=== PATIENT | male | born 1960 | race Caucasian/White ===

== ENCOUNTER 2018-02-14 21:21 | Inpatient (IN) | payer SELFPAY ==
[2018-02-14 22:55] LABS: Absolute Lymphocytes (CBC) 0.8 K/uL (0.7-4.9); Absolute Monocytes 0.5 K/uL (0.1-1.3); Absolute Neutrophil 4.3 K/uL (1.8-8.0); Basophils % 1.1 % (0-1.3); Eosinophils % 4.9 % (0-4.4); Hematocrit 36.1 % (39.6-49.0); Lymphocytes % 13.9 % (15.3-44.8); MPV 8.1 fL (7.6-11.3); Monocytes % 8.5 % (3.3-12.3); RBC Red Blood Cell Count 3.85 M/uL (4.33-5.43)
[2018-02-14 22:58] LABS: Protime INR 1.22
[2018-02-14 23:08] LABS: ALT/SGPT 40 U/L (12-78); AST/SGOT 59 U/L (15-37); Albumin 2.2 g/dL (3.4-5.0); Alkaline Phosphatase 200 U/L (45-117); BUN Blood Urea Nitrogen 18 mg/dL (7-18); Bicarbonate 24 mmol/L (21-32); Bilirubin Direct 0.5 mg/dL (0-0.2); Bilirubin Total 1.1 mg/dL (0.2-1.0); Glucose Level 108 mg/dL (74-106); Lipase 241 U/L (73-393); NT PRO-BNP 155 pg/mL (<125); Protein, Total 6.7 g/dL (6.4-8.2); Sodium Level 141 mmol/L (136-145); Troponin (Emerg Dept Use Only) < 0.02 ng/mL (0.0-0.045)
--- NOTE | 2018-02-15 02:24 | ER ---
Nurse's Notes [facility] Name: Mumtaz Mace Age: 57 yrs Sex: Male : 1960 Arrival Date: 02/14/2018 Time: 21:25 Bed 14 Private MD: Diagnosis: Unspecified cirrhosis of liver;Anasarca Presentation: 02/14 21:34 Presenting complaint: Patient states: "I've been having a lot of swelling all over my lp1 body the last couple days, getting painful"; Hx of Hep C, has not been taking medications as prescribed; States congestion. Transition of care: patient was not received from another setting of care. Onset of symptoms was February 14, 2018. Risk Assessment: Do you want to hurt yourself or someone else? Patient reports no desire to harm self or others. Initial Sepsis Screen: Does the patient meet any 2 criteria? No. Patient's initial sepsis screen is negative. Does the patient have a suspected source of infection? No. Patient's initial sepsis screen is negative. Care prior to arrival: None. 21:34 Method Of Arrival: Wheelchair lp1 21:34 Acuity: BUD 3 lp1 Historical: - Allergies: 21:37 PENICILLINS; lp1 - Home Meds: 21:37 Unable to obtain [Active]; lp1 - PMHx: 21:37 Hepatitis; lp1 - PSHx: 21:37 Left ankle surgery; lp1 - Immunization history:: Adult Immunizations up to date. - Social history:: Smoking status: Patient uses tobacco products, smokes one-half pack cigarettes per day. - Ebola Screening: : No symptoms or risks identified at this time. - Family history:: not pertinent. - Hospitalizations: : No recent hospitalization is reported. Screenin:53 Abuse screen: Denies threats or abuse. Denies injuries from another. Nutritional cc3 screening: No deficits noted. Tuberculosis screening: No symptoms or risk factors identified. Fall Risk Ambulatory Aid- None/Bed Rest/Nurse Assist (0 pts). Gait- Normal/Bed Rest/Wheelchair (0 pts) Mental Status- Oriented to own ability (0 pts). Assessment: 21:53 General: Appears in no apparent distress. uncomfortable, Behavior is calm, cooperative, cc3 appropriate for age. Pain: Complains of pain in generalized body pain. Neuro: Level of Consciousness is awake, alert, obeys commands, Oriented to person, place, time, situation, Appropriate for age. Cardiovascular: Patient's skin is warm and dry. Respiratory: Airway is patent Respiratory effort is even, unlabored, Respiratory pattern is regular, symmetrical. GI: Abdomen is round distended, noted to have ascites. : No signs and/or symptoms were reported regarding the genitourinary system. EENT: No signs and/or symptoms were reported regarding the EENT system. Derm: Skin is intact. Musculoskeletal: Circulation, motion, and sensation intact. Range of motion: intact in all extremities. 22:20 Reassessment: Patient appears in no apparent distress at this time. Patient and/or cc3 family updated on plan of care and expected duration. Pain level reassessed. Patient is alert, oriented x 3, equal unlabored respirations, skin warm/dry/pink. 23:20 Reassessment: Patient appears in no apparent distress at this time. Patient and/or cc3 family updated on plan of care and expected duration. Pain level reassessed. Patient is alert, oriented x 3, equal unlabored respirations, skin warm/dry/pink. 02/15 00:10 Reassessment: Patient appears in no apparent distress at this time. Patient and/or cc3 family updated on plan of care and expected duration. Pain level reassessed. Patient is alert, oriented x 3, equal unlabored respirations, skin warm/dry/pink. 01:20 Reassessment: Patient appears in no apparent distress at this time. Patient and/or cc3 family updated on plan of care and expected duration. Pain level reassessed. Patient is alert, oriented x 3, equal unlabored respirations, skin warm/dry/pink. 02:18 Reassessment: Patient appears in no apparent distress at this time. Patient and/or cc3 family updated on plan of care and expected duration. Pain level reassessed. Patient is alert, oriented x 3, equal unlabored respirations, skin warm/dry/pink. 03:30 Reassessment: Patient appears in no apparent distress at this time. Patient and/or cc3 family updated on plan of care and expected duration. Pain level reassessed. Patient is alert, oriented x 3, equal unlabored respirations, skin warm/dry/pink. Patient for admission, room available in 406, report handed over to ADAM Cohn for continuity of care. 03:45 Reassessment: Patient left ER for admission vitally stable by stretcher escorted by ED cc3 [facility]. Vital Signs: 02/14 21:37 BP 152 / 71; Pulse 103; Resp 18; Temp 98.5(O); Pulse Ox 100% on R/A; Weight 65.77 kg; lp1 Height 5 ft. 0 in. (152.40 cm); Pain 9/10; 23:07 BP 158 / 73; Pulse 96; Resp 17 S; Pulse Ox 98% on R/A; cc3 02/15 00:30 BP 154 / 70; Pulse 97; Resp 15 S; Pulse Ox 98% on R/A; cc3 01:15 BP 146 / 70; Pulse 96; Resp 21 S; Pulse Ox 97% on R/A; cc3 03:25 BP 141 / 70; Pulse 92; Resp 20 S; Pulse Ox 97% on R/A; cc3 02/14 21:37 Body Mass Index 28.32 (65.77 kg, 152.40 cm) lp1 ED Course: 02/14 21:25 Patient arrived in ED. am2 21:36 Triage completed. lp1 21:38 Arm band placed on right wrist. lp1 21:39 Leonidas Avila MD is Attending Physician. rn 21:53 Mckayla Gutierrez is Primary Nurse. cc3 21:53 Patient has correct armband on for positive identification. Bed in low position. Call cc3 light in reach. Side rails up X 1. telemetry monitor on. Pulse ox on. NIBP on. 22:18 XRAY CXR (1 view) In Process Unspecified. EDMS 22:40 Inserted saline lock: 20 gauge in right antecubital area, using aseptic technique. oe Blood collected. 22:57 EKG done, by ED staff, reviewed by Leonidas Avila MD. ag4 23:33 CT completed. Patient tolerated procedure well. Patient moved to CT via stretcher. sj Patient moved back from CT. 23:47 CT Abd/Pelvis - W/Contrast In Process Unspecified. EDMS 02/15 02:22 Bhavik Danielson MD is Hospitalizing Provider. rn 03:30 No provider procedures requiring assistance completed. Patient admitted, IV remains in cc3 place. Administered Medications: 02:25 Drug: Lasix 40 mg Route: IVP; Site: right antecubital; cc3 03:12 Follow up: Response: No adverse reaction cc3 Output: 02:40 Urine: 180ml (Voided); Total: 180ml. cc3 03:07 Urine: 275ml (Voided); Total: 455ml. cc3 Outcome: 02:22 Decision to Hospitalize by Provider. rn 03:30 Admitted to Tele accompanied by tech, via stretcher, room 406, with chart, Report cc3 called to ADAM Cohn 03:30 Condition: stable 03:30 Instructed on the need for admit, Demonstrated understanding of instructions. 03:48 Patient left the ED. cc3 Signatures: Dispatcher [employer] EDMS Rylee Mock Roman, MD MD rn Pena, Laura, RN RN lp1 Baldomero Crews Amanda am2 Mckayla Gutierrez cc3 Julio Walter ag4 Corrections: (The following items were deleted from the chart) 01:14 00:30 Pulse 97bpm; Resp 15bpm; Spontaneous; Pulse Ox 98% RA; cc3 cc3 03:08 02:40 Urine 180, Output Total 180. cc3 cc3
--- NOTE | 2018-02-15 02:24 | EDPHYS ---
Physician Documentation [facility] Name: Mumtaz Mace Age: 57 yrs Sex: Male : 1960 Arrival Date: 02/14/2018 Time: 21:25 Bed 14 Private MD: ED Physician Leonidas Avila HPI: 02/14 22:53 This 57 yrs old Male presents to ER via Wheelchair with complaints of rn swelling/pain all over. 22:53 Reports 2 days of swelling "all over", has hx of hepatitis C, but no known cirrhosis, rn no drinking for 10 years. No fever. States takes unknown "fluid pill" but not working.. Onset: The symptoms/episode began/occurred 2 day(s) ago. Severity of symptoms: At their worst the symptoms were moderate in the emergency department the symptoms are unchanged. The patient has not experienced similar symptoms in the past. The patient has not recently seen a physician. Historical: - Allergies: 21:37 PENICILLINS; lp1 - Home Meds: 21:37 Unable to obtain [Active]; lp1 - PMHx: 21:37 Hepatitis; lp1 - PSHx: 21:37 Left ankle surgery; lp1 - Immunization history:: Adult Immunizations up to date. - Social history:: Smoking status: Patient uses tobacco products, smokes one-half pack cigarettes per day. - Ebola Screening: : No symptoms or risks identified at this time. - Family history:: not pertinent. - Hospitalizations: : No recent hospitalization is reported. ROS: 22:53 Constitutional: Negative for fever, chills, and weight loss, Cardiovascular: Negative rn for chest pain, palpitations, + diffuse edema Respiratory: + sob, no cough Abdomen/GI: Negative for abdominal pain, nausea, vomiting, diarrhea, and constipation, : Negative for injury, bleeding, discharge MS/Extremity: Negative for injury and deformity, Skin: Negative for injury, rash, and discoloration, Neuro: Negative for headache, weakness, numbness, tingling, and seizure. Exam: 22:53 Constitutional: This is a well developed male, extremely edematous and trouble just rn getting out of wheelchair Head/Face: Normocephalic, atraumatic. ENT: MMM, no stridor Cardiovascular: tachycardic, regular, no murmur Respiratory: Clear bilateral breath sounds, diminished at bases Abdomen/GI: + distended abdomen with + fluid wave, no peritoneal signs, + fluid-filled umbilical hernia MS/ Extremity: Pulses equal, no cyanosis. Neurovascular intact. 3+ pitting edema Neuro: Awake and alert, GCS 15, oriented to person, place, time, and situation. Cranial nerves II-XII grossly intact. Motor strength 5/5 in all extremities. Sensory grossly intact. Vital Signs: 21:37 BP 152 / 71; Pulse 103; Resp 18; Temp 98.5(O); Pulse Ox 100% on R/A; Weight 65.77 kg; lp1 Height 5 ft. 0 in. (152.40 cm); Pain 9/10; 23:07 BP 158 / 73; Pulse 96; Resp 17 S; Pulse Ox 98% on R/A; cc3 02/15 00:30 BP 154 / 70; Pulse 97; Resp 15 S; Pulse Ox 98% on R/A; cc3 01:15 BP 146 / 70; Pulse 96; Resp 21 S; Pulse Ox 97% on R/A; cc3 03:25 BP 141 / 70; Pulse 92; Resp 20 S; Pulse Ox 97% on R/A; cc3 02/14 21:37 Body Mass Index 28.32 (65.77 kg, 152.40 cm) lp1 MDM: 02/14 21:39 Patient medically screened. rn 02/15 02:20 Differential Diagnosis anasarca, cirrhosis. Data reviewed: vital signs, nurses notes, radiology rn test result(s), radiologic studies, CT scan, plain films, and as a result, I will admit patient. Counseling: I had a detailed discussion with the patient and/or guardian regarding: the historical points, exam findings, and any diagnostic results supporting the discharge/admit diagnosis, lab results, radiology results, the need for further work-up and treatment in the hospital. Admission orders: after a detailed discussion of the patient's condition and case, the admit orders are written by me. ED course: Pt with anasarca, ascites, will admit for further w/u and diuresis. . 02/14 21:57 Order name: BMP; Complete Time: 23:12 rn 02/14 21:57 Order name: CBC with Diff; Complete Time: 23:12 rn 02/14 21:57 Order name: Hepatic Function; Complete Time: 23:12 02/14 21:57 Order name: Lipase; Complete Time: 23:12 02/14 21:57 Order name: NT PRO-BNP; Complete Time: 23:12 02/14 21:57 Order name: PT-INR; Complete Time: 23:12 02/14 21:57 Order name: Ptt, Activated; Complete Time: 23:12 02/14 21:57 Order name: Troponin (emerg Dept Use Only); Complete Time: 23:12 02/15 02:43 Order name: Urine Dipstick--Ancillary (enter results) 02/15 02:55 Order name: CBC with Automated Diff [facility] 02/15 02:55 Order name: CBC with Automated Diff [facility] 02/15 02:55 Order name: Comprehensive Metabolic Panel [facility] 02/15 02:55 Order name: Comprehensive Metabolic Panel [facility] 02/15 02:56 Order name: Hepatitis Panel,Acute [facility] 02/14 21:57 Order name: XRAY CXR (1 view) 02/14 21:57 Order name: EKG; Complete Time: 21:58 02/14 21:57 Order name: Cardiac monitoring; Complete Time: 22:13 02/14 21:57 Order name: EKG - Nurse/Tech; Complete Time: 22:59 02/14 21:57 Order name: IV Saline Lock; Complete Time: 22:59 02/14 21:57 Order name: Labs collected and sent; Complete Time: 22:59 02/14 21:57 Order name: O2 Per Protocol; Complete Time: 22:13 02/14 21:57 Order name: O2 Sat Monitoring; Complete Time: 22:13 02/14 23:12 Order name: CT Abd/Pelvis - W/Contrast 02/15 02:55 Order name: CONS Pharmacy Consult [facility] 02/15 02:55 Order name: Heart Healthy [facility] 02/15 02:56 Order name: Hepatitis Panel,Acute [facility]PR Administered Medications: 02:25 Drug: Lasix 40 mg Route: IVP; Site: right antecubital; cc3 03:12 Follow up: Response: No adverse reaction cc3 Disposition: 02/15/18 02:22 Hospitalization ordered by Bhavik Danielson for Inpatient Admission. Preliminary diagnosis are Unspecified cirrhosis of liver, Anasarca. - Bed requested for Telemetry/MedSurg (Inpatient). - Status is Inpatient Admission. cc3 - Condition is Stable. - Problem is new. - Symptoms have improved. UTI on Admission? No Signatures: Dispatcher [employer] EDEva Marks, RN RN kl Leonidas Avila MD MD rn Pena, Laura, RN RN lp1 Mckayla Gutierrez cc3 Corrections: (The following items were deleted from the chart) 03:17 02:22 Hospitalization Ordered by Bhavik Danielson MD for Inpatient Admission. Preliminary kl diagnosis is Unspecified cirrhosis of liver; Anasarca. Bed requested for Telemetry/MedSurg (Inpatient). Status is Inpatient Admission. Condition is Stable. Problem is new. Symptoms have improved. UTI on Admission? No. rn 03:48 03:17 02/15/2018 02:22 Hospitalization Ordered by Bhavik Danielson MD for Inpatient cc3 Admission. Preliminary diagnosis is Unspecified cirrhosis of liver; Anasarca. Bed requested for Telemetry/MedSurg (Inpatient). Status is Inpatient Admission. Condition is Stable. Problem is new. Symptoms have improved. UTI on Admission? No. kl
[2018-02-15] MEDS ORDERED: FUROSEMIDE 40 MG/4 ML VIAL ONE (02:31)
[2018-02-15] MEDS ORDERED: ALBUMIN HUMAN 25% 100 ML IV ONE (02:52)
[2018-02-15] MEDS ORDERED: ONDANSETRON 4 MG/2 ML VIAL IV PRN (02:52)
[2018-02-15] MEDS ORDERED: FUROSEMIDE 20 MG/ 2ML VIAL IV ONE ×2 (02:55→12:30)
[2018-02-15 03:19] LABS: Urine Blood 2+ (NEG); Urine Glucose NEGATIVE (NEG); Urine Protein 3+ (NEG); Urine pH 5.5 (5.0-7.0)
[2018-02-15 04:01] VITALS: O2SAT 97
[2018-02-15 05:03] VITALS: BMI 33.8
[2018-02-15] MEDS: MORPHINE 2 MG/ML SYR IV PRN ×3 (05:43→19:55)
--- NOTE | 2018-02-15 06:00 | EKG ---
Test Date: 2018-02-14 Test Time: 22:51:59 Set Up And Lay Out Inspector: AG3 MEASUREMENT RESULTS: Intervals: Rate: 99 [place]: 142 QRSD: 76 QT: 378 QTc: 485 [place]: P: 27 [place]: 142 QRS: 12 T: 25 INTERPRETIVE STATEMENTS: Normal sinus rhythm Nonspecific T wave abnormality Prolonged QT Abnormal ECG No previous ECG available for comparison Electronically Signed On 02-15-18 05:59:41 [employer] by Yony Henning
[2018-02-15 06:23] LABS: Absolute Lymphocytes (CBC) 0.8 K/uL (0.7-4.9); Absolute Monocytes 0.6 K/uL (0.1-1.3); Absolute Neutrophil 3.2 K/uL (1.8-8.0); Eosinophils % 5.1 % (0-4.4); Lymphocytes % 16.6 % (15.3-44.8); RBC Red Blood Cell Count 3.13 M/uL (4.33-5.43)
[2018-02-15 06:33] LABS: Albumin 2.2 g/dL (3.4-5.0); Bilirubin Total 1.3 mg/dL (0.2-1.0); Potassium 3.7 mmol/L (3.5-5.1)
[2018-02-15] MEDS ORDERED: ALBUMIN HUMAN 25% 12.5 GM, FUROSEMIDE 100 MG in NA CHLORIDE 0.9% 40 ML IV SCH (07:00)
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
--- NOTE | 2018-02-15 08:28 | RAD REPORT ---
EXAM DESCRIPTION: RAD - Chest Single View - 02/14/2018 10:18 pm CLINICAL HISTORY: DYSPNEA Chest pain. COMPARISON: No comparisons FINDINGS: Portable technique limits examination quality. The lungs are grossly clear. The heart is normal in size. No displaced fractures.Prominent left shoul jeni degenerative changes. IMPRESSION: No acute intrathoracic process suspected.
--- NOTE | 2018-02-15 08:42 | RAD REPORT ---
EXAM DESCRIPTION: CTAbdomen Pelvis W Contrast - 02/15/2018 4:24 am CLINICAL HISTORY: Abdominal pain. IV contrast only;Abdominal distention COMPARISON: No comparisons TECHNIQUE: Biphasic CT imaging of the abdomen and pelvis was performed with 100 ml non-ionic IV cont rast. All CT scans are performed using dose optimization technique as appropriate and may include automated exposure control or mA/KV adjustment according to patient size. FINDINGS: Emphysematous lung bases are seen. Markedly cirrhotic liver is seen with shrunken and nodular. Yxgo-po-wqordpdw splenomegaly. Portal neha ous system is enlarged compatible with portal hypertension. The pancreas, adrenal glands and kidneys are within normal limits. Large amount of ascites is present. Umbilical hernia is present containing ascitic fluid. Bilateral f luid filled inguinal hernias are present, largest on the left, with fluid extending into the scrotal sac. No bowel obstruction. No free air. Nonspecific wall thickening of the cecum noted. The appendix is not identified as a discrete structure, however, no secondary findings of appendicitis are identif ied. No evidence of significant lymphadenopathy. No suspicious bony findings. IMPRESSION: Advanced liver cirrhosis, portal hypertension and splenomegaly. Large volume ascites.
[2018-02-15] MEDS: PROPRANOLOL HCL 10 MG TAB PO SCH ×3 (09:00→21:44)
[2018-02-15 09:23] LABS: Blood Morphology Comment NOT SEEN (NOT SEEN); Platelet Estimate DECR; Urine White Blood Cell Casts OK
--- NOTE | 2018-02-15 11:10 | RAD REPORT ---
EXAM DESCRIPTION: US - Paracentesis Proc Guidance - 02/15/2018 10:44 am CLINICAL HISTORY: US guided paracentesis Ascites COMPARISON: No comparisons FINDINGS: Informed consent was obtained and time-out was performed. Patient's abdomen was prepped and draped in the usual sterile fashion. 1% lidocaine was used for loca l anesthetic purposes. A small skin incision was made. A paracentesis catheter was guided into the peroneal cavity under son ographic guidance. A small amount of fluid was sent for requested lab studies. A large volume paracentesis was performed . The patient tolerated the procedure well. Patient was administered IV albumin per protocol following the procedure. IMPRESSION: Successful ultrasound-guided paracentesis.
[2018-02-15] MEDS: SPIRONOLACTONE 25 MG TABLET PO SCH ×2 (12:25→21:44)
[2018-02-15] MEDS ORDERED: ALBUMIN HUMAN 25% 50 ML IV ONE (12:29)
[2018-02-15 12:45] LABS: Body Fluid WBC 139 /mm^3
[2018-02-15 13:20] LABS: Appearance CLEAR (CLEAR); Body Fluid Source PERITONEAL; Color of fluid Yellow (COLORLESS)
[2018-02-16] MEDS: SPIRONOLACTONE 25 MG TABLET PO SCH (08:47)
[2018-02-16] MEDS: PROPRANOLOL HCL 10 MG TAB PO SCH (08:48)
[2018-02-16] MEDS: MORPHINE 2 MG/ML SYR IV PRN (08:49)
--- NOTE | 2018-02-16 11:32 | RAD REPORT ---
EXAM DESCRIPTION: RAD - Chest Single View - 02/16/2018 11:21 am CLINICAL HISTORY: SOB Chest pain. COMPARISON: Chest Single View dated 02/14/2018 FINDINGS: Portable technique limits examination quality. The lungs are grossly clear. The heart is normal in size. No displaced fractures. IMPRESSION: No acute intrathoracic process suspected.
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
[2018-02-16] MEDS ORDERED: PANTOPRAZOLE 40MG TABLET PO SCH (16:30)
[2018-02-16 18:01] VITALS: BP 143/58; TEMP 98.9
[2018-02-17] MEDS ORDERED: FUROSEMIDE 20 MG TABLET PO SCH (09:00)
[2018-02-17] MEDS ORDERED: PROPRANOLOL HCL 80 MG SA CAP PO SCH (09:00)
[2018-02-17 21:52] LABS: HBsAG Nonreactive (Nonreactive); Hepatitis A IgM Antibody Nonreactive
[2018-02-18 16:36] LABS: Hepatitis C Virus RNA (PCR)log 5.52 log IU/mL
[2018-02-19 13:50] LABS: Hep C Virus RNA (PCR)log 5.32 log IU/mL
== END 2018-02-16 17:06 | disposition home or self-care (01) | DRG 948 ==
LOC: ER 21:21 → ERHOLD 02-15 02:57 → 4TH 02-15 03:33
PROVIDERS: ADMIT Hospitalist; ATTEND Family Medicine
PROC: 0W9G3ZZ Drainage of Peritoneal Cavity, Percutaneous Approach (ICD-10-PCS; principal; 2018-02-15)
DX: R18.8 Other ascites (principal); K74.69 Other cirrhosis of liver; B18.2 Chronic viral hepatitis C; R60.1 Generalized edema; Z88.0 Allergy status to penicillin; Z87.891 Personal history of nicotine dependence; N28.9 Disorder of kidney and ureter, unspecified
CPT/HCPCS: 36415; 49083; 71045; 74177; 80048; 80053; 80074; 80076; 81003; 82105; 83690; 83880; 84484; 85025; 85610; 85730; 87070; 87522; 89050; 93005; 96374; 97163; 99285; J1940; J2270; P9047; Q9967

== ENCOUNTER 2018-03-15 23:10 | Inpatient (IN) | payer SELFPAY ==
--- OUTSIDE RECORDS SUMMARY | 2018-03-15 23:13 | XMS REPORT | Continuity of Care Document ---
:1960 Author Organization Interface Problems Problem Status Onset Classification Date Comments Source Date Reported SHORTNESS OF Active 02/12/[address] [facility] BREATH 18 [place] ABNORMAL LABS Active 06/29/[address] [facility] 18 [place] ACUTE COLITIS, Active 06/29/[address] [facility] ACUTE 18 [place] PANCREATITIS, HYPOK Noninfective 07/04/2017 [place] gastroenteritis and colitis, unspecified NONINFECTIVE Active [facility] GASTROENTERITIS [place] AND COLITIS ACUTE PANCREATITIS Active [facility] WITHOUT NECROSIS [place] OR I HYPOKALEMIA Active [facility] Medications Medication Details Route Status Patient Ordering Order Source Instructions Provider Date Loperamide 2 mg=1 tab, Active [facility] Hydrochloride 2 PO, Q6H, PRN 2018 [place] MG Oral Tablet Loose Stools, [Imodium] X 5 day, # 12 tab, 0 Refill(s), Pharmacy: [facility] Metronidazole 500 mg=1 tab, Active 07/01/ MH 500 MG Oral PO, Q8H, X 7 2018 [place] Tablet [Flagyl] day, # 21 tab, 0 Refill(s), Pharmacy: [facility] Ciprofloxacin 500 mg=1 tab, Active 07/01/ MH 500 MG Oral PO, Q12H, X 7 2018 [place] Tablet [Cipro] day, # 14 tab, 0 Refill(s), Pharmacy: [facility] pantoprazole 40 40 mg=1 tab, Active MH mg oral enteric PO, 2018 [place] coated tablet BID-Before Meals, # 60 tab, 0 Refill(s), Pharmacy: [facility] Potassium 20 mEq, 1 Inactive 07/01/ Chloride tab, Route: 2018 [place] PO, Drug form: ERTAB, ONCE, Dosing Weight 55.17, kg, Start date: 07/01/17 11:22:00 CDT, Stop date: 07/01/17 11:22:00 CDTNotes: (Same as: K-Dur 20) "Do Not Crush" For patients unable to swallow tablet, dissolve in one half glass of water. Allow about 2 minutes for the tablets to disintegrate. Stir before giving to prepare slurry and administer. Please exclude Patient&#8217 ;s with feeding tube less than 14 [place] (Dobhoff, J-tube etc) and pediatric and patients. With food and full glass of water Magnesium Oxide 400 mg, 1 Inactive tab, Route: 2018 [place] PO, Drug form: TAB, ONCE, Dosing Weight 55.17, kg, Start date: 07/01/17 11:22:00 CDT, Stop date: 07/01/17 11:22:00 CDTNotes: (Same as: Mag-Ox 400) Magnesium oxide [id number] elemental magnesium Dose=____mg magnesium oxide (___mg elemental magnesium) pantoprazole 40 mg, 1 tab, No Longer Route: PO, Active 2017 [place] Drug form: ECTAB, BID-Before Meals, Dosing Weight 55.17, kg, Start date: 06/30/17 16:30:00 CDT, Duration: 30 day, Stop date: 07/30/17 7:30:00 CDTNotes: Tablet should not be chewed or crushed. (Same as: Protonix) Sodium Chloride 1,000 mL, Inactive 0.9% IV 1,000 mL Rate: 25 2017 [place] ml/hr, Infuse over: 40 hr, Route: IV, Dosing Weight 55.17 kg, Total Volume: 1,000, Start date: 06/30/17 9:15:00 CDT, Duration: 30 day, Stop date: 07/30/17 9:14:00 CDT, 1.55, m2 Fleet Enema 133 mL, Inactive Route: NC, 2018 [place] Dosing Weight 55.17, kg, ONCE, Start date: 06/30/17 8:11:00 CDT, Stop date: 06/30/17 8:11:00 CDT Potassium 40 mEq, 30 Inactive Chloride 1.33 mL, Route: 2018 [place] MEQ/ML Oral PO, Drug Solution form: LIQ, ONCE, Dosing Weight 55.17, kg, Start date: 06/30/17 7:54:00 CDT, Stop date: 06/30/17 7:54:00 CDTNotes: (Same as: Potassium Chloride) Harvoni 1 tab, PO, Active Daily, 0 2017 [place] Refill(s) NuLYTELY 4,000 ml, Inactive Route: PO, 2017 [place] Drug Form: PDR/REC, Dosing Weight 55.17, kg, ONCE, Start date: 06/29/17 16:29:00 CDT, Stop date: 06/29/17 16:29:00 CDTNotes: (Same as: Nulytely) Citrate of 300 ml, Inactive Magnesia Route: PO, 2017 [place] Drug Form: LIQ, Dosing Weight 55.17, kg, ONCE, Start date: 06/29/17 16:28:00 CDT, Stop date: 06/29/17 16:28:00 CDTNotes: (Same as: Citrate of Magnesia) Concentration : 1.745 gm / 30 mL Potassium 10 mEq, Inactive Chloride Route: IVPB, 2017 [place] Q1H, Dosing Weight 55.17, kg, Total Dose=20 meq, Start date: 06/29/17 14:00:00 CDT, Duration: 2 doses or times, Stop date: 06/29/17 15:00:00 CDT, Peripheral Line potassium 15 mmol, 5 Inactive phosphate mL, Route: 2017 [place] IVPB, ONCE, Dosing Weight 55.17, kg, Start date: 06/29/17 13:59:00 CDT, Stop date: 06/29/17 13:59:00 CDTNotes: (Same as: K Phosphate.) 1 mMol phoshate has 1.47 mEq potassium Infuse over 4 hours Potassium 40 mEq, 2 Inactive Chloride tab, Route: 2017 [place] PO, Drug form: ERTAB, ONCE, Dosing Weight 55.17, kg, Start date: 06/29/17 13:03:00 CDT, Stop date: 06/29/17 13:03:00 CDTNotes: (Same as: K-Dur 20) Golytely 4,000 ml, Inactive Route: PO, 2017 [place] Drug Form: PDR/REC, Dosing Weight 55.17, kg, ONCE, Start date: 06/29/17 8:33:00 CDT, Stop date: 06/29/17 8:33:00 CDTNotes: (Same as: Nulytely) magnesium 300 ml, Inactive citrate 58.2 Route: PO, 2018 [place] MG/ML Oral Drug Form: Solution LIQ, Dosing Weight 55.17, kg, ONCE, Start date: 06/29/17 8:33:00 CDT, Stop date: 06/29/17 8:33:00 CDTNotes: (Same as: Citrate of Magnesia) Concentration : 1.745 gm / 30 mL Flagyl 500 mg, 100 No Longer mL, Route: Active 2017 [place] IVPB, Drug form: INJ, [id number], Dosing Weight 55.17, kg, Start date: 06/29/17 7:00:00 CDT, Duration: 7 day, Stop date: 07/05/17 23:00:00 CDT, ABX Indication: Intra-abdomin al InfectionNote s: (Same as: Flagyl) Avoid alcohol. Ciprofloxacin 400 mg, 200 No Longer mL, Route: Active 2017 [place] IVPB, Drug form: INJ, [id number], Dosing Weight 55.17, kg, Start date: 06/29/17 7:00:00 CDT, Duration: 7 day, Stop date: 07/05/17 19:00:00 CDT, ABX Indication: Intra-abdomin al InfectionNote s: Do not refrigerate Saline Flush 10 ml, Route: No Longer 0.9% IVP, Drug Active 2017 [place] Form: INJ, Dosing Weight 52.8, kg, PRN, PRN Line Flush, Start date: 06/29/17 4:44:00 CDT, Duration: 30 day, Stop date: 07/29/17 4:43:00 CDTNotes: (Same as: BD Posiflush) Ondansetron 4 mg, 2 mL, No Longer Route: IVP, Active 2017 [place] Drug form: INJ, Q6H, Dosing Weight 52.8, kg, PRN Nausea & Vomiting, Start date: 06/29/17 4:44:00 CDT, Duration: 30 day, Stop date: 07/29/17 4:43:00 CDTNotes: (Same as: Zofran) MEDICATION WASTE Product Size: 4 mg Product Wasted: ___ mg Morphine 4 mg, 1 mL, No Longer Route: IVP, Active 2017 [place] Drug form: SOLN, Q4H, Dosing Weight 52.8, kg, PRN Pain Score 7-10, Start date: 06/29/17 4:44:00 CDT, Duration: 30 day, Stop date: 07/29/17 4:43:00 CDTNotes: (Same as:MORPhine Sulfate) Sodium Chloride 1,000 mL, No Longer 0.9% IV 1,000 mL Rate: 125 Active 2017 [place] ml/hr, Infuse over: 8 hr, Route: IV, Dosing Weight 52.8 kg, Total Volume: 1,000, Start date: 06/29/17 4:44:00 CDT, Duration: 30 day, Stop date: 07/29/17 4:43:00 CDT, 1.51, m2 Acetaminophen 650 mg, 2 No Longer tab, Route: Active 2017 [place] PO, Drug form: TAB, Q4H, Dosing Weight 52.8, kg, PRN Pain 1-3/Temp > 100.4 F, Start date: 06/29/17 4:44:00 CDT, Duration: 30 day, Stop date: 07/29/17 4:43:00 CDTNotes: Do not exceed 4 gm/day. (Same as: Tylenol) Sodium Chloride 1,000 mL, Inactive 0.9% (Bolus) IV 1000 ml/hr, 2017 [place] Infuse Over: 1 hr, Route: IV, 1,000, Drug form: INJ, ONCE, Priority: STAT, Dosing Weight 52.8 kg, Start date: 06/29/17 4:23:00 CDT, Stop date: 06/29/17 4:23:00 CDT Potassium 10 mEq, 100 Inactive Chloride mL, Route: 2018 [place] IVPB, Drug form: INJ, ONCE, Dosing Weight 52.8, kg, Start date: 06/29/17 1:54:00 CDT, Stop date: 06/29/17 1:54:00 CDTNotes: Infuse at a rate of 10 mEq/hr. (Same as: KCL) propranolol 80 80 mg=1 cap, Active 04/12/ [facility] mg oral capsule, PO, Daily, # 2018 [facility] extended release 30 cap, 2 Group Refill(s), Pharmacy: [facility] spironolactone 50 mg=1 tab, Active 04/12/ MH 50 mg oral PO, Daily, # 2017 Medical tablet 30 tab, 2 Group Refill(s), Pharmacy: [facility] spironolactone 25 mg=1 tab, Inactive 04/12/ MH 25 mg oral PO, Daily, # 2018 Medical tablet 30 tab, 3 Group Refill(s) Allergies, Adverse Reactions, Alerts Substance Category Reaction Severity Reaction Status Date Comments Source type Reported penicillins Assertion Drug Active allergy Medical Group Immunizations Immunization Date Given Site Status Last Updated Comments Source Results Order Name Results Value Reference Date Interpretation Comments Source Range CHEM PANEL Bili Direct 1.2 mg/dL 0.0 - 0.3 07/01 [place] CHEM PANEL Lipase Lvl 877 unit/L 73 - 393 07/01 [place] CHEM PANEL Magnesium 1.6 mg/dL 1.8 - 2.4 07/01 Lvl [place] CHEM PANEL eGFR 97 07/01 Result Comment: The eGFR is calculated using the CKD-EPI formula. In most young, healthy individuals the eGFR will be >90 mL/ min/1.73m2. The eGFR declines with age. An eGFR of 60-89 may be normal in [facility] mL/min/1. some populations, particularly the elderly, for whom the CKD-EPI formula has not been extensively validated. Use of the eGFR is not recommended in the following populations: [address] Individuals with unstable creatinine concentrations, including patients and those with serious co-morbid conditions. Patients with extremes in muscle mass or diet. The data above are obtained from the National Kidney Disease Education Program (NKDEP) which additionally recommends that when the eGFR is used in patients with extremes of body mass index for purposes of drug dosing, the eGFR should be multiplied by the estimated BMI. CHEM PANEL Sodium Lvl 145 meq/L 135 - 145 07/01 [place] CHEM PANEL Potassium 3.5 meq/L 3.5 - 5.1 07/01 [facility] Lvl /2017 [place] CHEM PANEL Chloride Lvl 121 meq/L 95 - 109 05/ MH [place] CHEM PANEL BUN 20 mg/dL 7 - 22 / MH [place] CHEM PANEL Creatinine 0.84 mg/dL 0.50 - 05/ MH Lvl 1.40 /2017 [place] CHEM PANEL Calcium Lvl 7.2 mg/dL 8.5 - 10.5 05/ MH [place] CHEM PANEL Total 5.4 g/dL 6.4 - 8.4 / MH [place] CHEM PANEL AGAP 11.5 meq/L 10.0 - 05/ MH 20.0 /2017 [place] CHEM PANEL B/C Ratio 24 6 - 25 / [place] CHEM PANEL CO2 16 meq/L 24 - 32 / [place] CHEM PANEL ALT 63 unit/L 0 - 65 07/01 [place] CHEM PANEL Albumin Lvl 2.2 g/dL 3.5 - 5.0 07/01 [place] CHEM PANEL A/G Ratio 0.7 0.7 - 1.6 07/01 [place] CHEM PANEL AST 57 unit/L 0 - 37 / [place] CHEM PANEL Globulin 3.2 g/dL 2.7 - 4.2 / [place] CHEM PANEL Alk Phos 241 unit/L 39 - 136 / [place] CHEM PANEL Bili Total 2.3 mg/dL 0.2 - 1.3 07/01 [place] CHEM PANEL Glucose Lvl 146 mg/dL 70 - 99 / MH [place] HEMATOLOGY INR 1.87 0.85 - 05/ MH 1.17 [place] HEMATOLOGY PT 21.7 s 12.0 - 05/ MH 14.7 [place] HEMATOLOGY Lymphocytes 1.1 K/CMM 1.0 - 5.5 05/03 MH # /2018 [place] HEMATOLOGY Eosinophils 2.3 K/CMM 0.0 - 0.5 05/03 MH # /2018 [place] HEMATOLOGY Monocytes # 0.5 K/CMM 0.0 - 0.8 05/ [place] HEMATOLOGY Segs-Bands # 4.5 K/CMM 1.5 - 8.1 05/ MH /2018 [place] HEMATOLOGY Basophils # 0.1 K/CMM 0.0 - 0.2 07/01 [place] HEMATOLOGY Eosinophils 26.8 % 0.0 - 4.0 07/01 [place] HEMATOLOGY Basophils 0.7 % 0.0 - 1.0 07/01 [place] HEMATOLOGY Monocytes 5.8 % 2.0 - 12.0 07/01 [facility] Lymphocytes 13.4 % 20.0 - 07/01 MH 40.0 [place] HEMATOLOGY Segs 53.3 % 45.0 - 07/01 75.0 [place] HEMATOLOGY WBC 8.5 K/CMM 3.7 - 10.4 07/01 [facility] MPV 8.4 fL 7.4 - 10.4 07/01 [facility] RDW 14.6 % 11.5 - 07/[address] [facility] Platelet 80 K/CMM 133 - 450 07/01 [facility] MCHC 38.3 g/dL 32.0 - 07/01 MH 36.0 [place] HEMATOLOGY MCV 84.6 fL 80.0 - 07/01 94.0 [place] HEMATOLOGY Hct 28.4 % 42.0 - 07/01 54.0 [place] HEMATOLOGY RBC 3.35 M/CMM 4.70 - 07/01 MH 6.10 [place] HEMATOLOGY Hgb 10.9 g/dL 14.0 - 07/[address] [facility] MCH 32.4 pg 27.0 - 07/01 31.0 [place] ELECTROLYTE Potassium 3.5 meq/L 3.5 - 5.1 06/30 S Lvl [place] Abdomen wo Abdomen wo EXAM: MRCP 06/30 - [facility] contrast contrast MRI /2017 - [place] MRI HISTORY: Bilateral common bile duct stone COMPARISON: CT and ultrasound 06/29/2017 Read by: Dakota Ken MD Dictated Date/time: 06/30/17 15:05 TECHNIQUE: MRCP performed with axial in and out of phase gradient echo imaging. Coronal T2, axial T2 and oblique axial T2 images, thick slab and maximum intensity projection images obtained. Electronically Signed by: Dakota Ken MD 06/30/17 15:24 FINAL REPORT FINDINGS: Biliary tree: Gallbladder is distended, no gallstone is seen. No biliary dilation or stone is seen. Pancreas: Unremarkable. Other: Fatty liver with cirrhosis. The portal vein is prominent with small upper abdominal varices; stable enlargement of the spleen. Small volume ascites and moderate mesenteric edema. IMPRESSION: 1. No biliary dilation or stone is seen. 2. Distended gallbladder, no gallstone is seen. 3. Fatty liver with cirrhosis, portal hypertension with small varices and moderate splenomegaly. 4. Small volume ascites. SL: [id number] CHEM PANEL eGFR 94 06/30 Result Comment: The eGFR is calculated using the CKD-EPI formula. In most young, healthy individuals the eGFR will be >90 mL/ min/1.73m2. The eGFR declines with age. An eGFR of 60-89 may be normal in mL/min/1. some populations, particularly the elderly, for whom the CKD-EPI formula has not been extensively validated. Use of the eGFR is not recommended in the following populations: [address] Individuals with unstable creatinine concentrations, including patients and those with serious co-morbid conditions. Patients with extremes in muscle mass or diet. The data above are obtained from the National Kidney Disease Education Program (NKDEP) which additionally recommends that when the eGFR is used in patients with extremes of body mass index for purposes of drug dosing, the eGFR should be multiplied by the estimated BMI. CHEM PANEL Potassium 2.9 meq/L 3.5 - 5.1 06/30 Result [facility] Lvl Comment: [place] Critical Result(s) called to David NAYLOR at 06/30/2017 05:39 by D^2. Read back OK. CHEM PANEL Chloride Lvl 119 meq/L 95 - 109 06/30 [place] CHEM PANEL CO2 16 meq/L 24 - 32 06/30 [place] CHEM PANEL AGAP 11.9 meq/L 10.0 - 05 MH 20.0 [place] CHEM PANEL Calcium Lvl 7.2 mg/dL 8.5 - 10.5 06/30 [place] CHEM PANEL B/C Ratio 28 6 - 25 06/30 [place] CHEM PANEL Total 5.6 g/dL 6.4 - 8.4 06/30 MH Protein [place] CHEM PANEL Albumin Lvl 2.4 g/dL 3.5 - 5.0 06/30 [place] CHEM PANEL Globulin 3.2 g/dL 2.7 - 4.2 06/30 [place] CHEM PANEL A/G Ratio 0.8 0.7 - 1.6 06/30 [place] CHEM PANEL AST 87 unit/L 0 - 37 06/30 [place] CHEM PANEL ALT 74 unit/L 0 - 65 06/30 [place] CHEM PANEL Bili Total 5.6 mg/dL 0.2 - 1.3 06/30 [place] CHEM PANEL Alk Phos 248 unit/L 39 - 136 06/30 [place] CHEM PANEL BUN 25 mg/dL 7 - 22 06/30 [place] CHEM PANEL Glucose Lvl 111 mg/dL 70 - 99 06/30 Result Comment: . [place] CHEM PANEL Creatinine 0.89 mg/dL 0.50 - 06/30 MH Lvl 1.40 [place] CHEM PANEL Sodium Lvl 144 meq/L 135 - 145 06/30 [place] HEMATOLOGY Basophils 0.2 % 0.0 - 1.0 06/30 [place] HEMATOLOGY Eosinophils 29.4 % 0.0 - 4.0 06/30 [place] HEMATOLOGY Segs-Bands # 5.6 K/CMM 1.5 - 8.1 06/30 [place] HEMATOLOGY Lymphocytes 1.1 K/CMM 1.0 - 5.5 06/30 [place] HEMATOLOGY Monocytes # 0.6 K/CMM 0.0 - 0.8 06/30 [place] HEMATOLOGY Eosinophils 3.1 K/CMM 0.0 - 0.5 06/30 [place] HEMATOLOGY Lymphocytes 10.1 % 20.0 - 05 MH 40.0 [place] HEMATOLOGY Segs 54.2 % 45.0 - 06/30 MH 75.0 [place] HEMATOLOGY Monocytes 6.1 % 2.0 - 12.0 06/30 [place] HEMATOLOGY WBC 10.4 K/CMM 3.7 - 10.4 06/30 [place] HEMATOLOGY Hgb 11.4 g/dL 14.0 - 06/30 MH 18.0 [place] HEMATOLOGY Hct 30.4 % 42.0 - 06/30 MH 54.0 [place] HEMATOLOGY RBC 3.61 M/CMM 4.70 - 06/30 MH 6.10 [place] HEMATOLOGY MCV 84.1 fL 80.0 - 06/30 94.0 [place] HEMATOLOGY MCH 31.5 pg 27.0 - 06/30 MH 31.0 [place] HEMATOLOGY MCHC 37.4 g/dL 32.0 - 06/30 36.0 [place] HEMATOLOGY RDW 14.8 % 11.5 - 06/30 MH 14.5 [place] HEMATOLOGY MPV 8.3 fL 7.4 - 10.4 06/30 [place] HEMATOLOGY Platelet 102 K/CMM 133 - 450 06/30 [place] MOLECULAR C difficile Negative Negative 06/29 DIAGNOSTIC DNA [place] (06/29/17 10:13 AM) URINE AND UA WBC 1 /HPF 0 - 5 06/29 STOOL [place] URINE AND UA RBC 2 /HPF 0 - 2 06/29 STOOL [place] URINE AND UA Bili Negative Negative 06/29 STOOL [place] *NA* (06/29/17 4:02 AM) URINE AND UA Blood Negative Negative 06/29 STOOL [place] (06/29/17 4:02 AM) URINE AND UA Sq Epi Occasional Few /LPF 06/29 STOOL /LPF [place] URINE AND UA Mucus Few /LPF None Seen 06/29 STOOL /LPF [place] URINE AND UA Leuk Est Negative Negative 06/29 STOOL [place] (06/29/17 4:02 AM) URINE AND UA Nitrite Negative Negative 06/29 STOOL [place] (06/29/17 4:02 AM) URINE AND UA Ketones Negative Negative 06/29 [facility]OOL mg/dL mg/dL [place] URINE AND UA <=1.0 0.1 - 1.0 06/29 STOOL Urobilinogen mg/dL [place] URINE AND UA pH 6.0 5.0 - 8.0 06/29 STOOL [place] URINE AND UA Protein Negative Negative 06/29 [facility] mg/dL mg/dL [place] URINE AND UA Glucose Negative Negative 06/29 [facility] mg/dL mg/dL [place] URINE AND UA Spec Grav 1.018 <=1.030 06/29 STOOL [place] URINE AND UA Turbidity Clear Clear 06/29 STOOL [place] (06/29/17 4:02 AM) URINE AND UA Color Yellow Yellow 06/29 STOOL [place] *NA* (06/29/17 4:02 AM) CARDIAC Troponin-I null 0.00 - 05 ENZYMES 0.40 [place] CARDIAC Total CK 58 unit/L 12 - 191 06/29 ENZYMES [place] CHEM PANEL Lipase Lvl 3080 73 - 393 06/29 unit/L [place] CHEM PANEL Magnesium 2.0 mg/dL 1.8 - 2.4 06/29 Lvl [place] CHEM PANEL Phosphorus 2.3 mg/dL 2.5 - 4.5 06/29 [place] CHEM PANEL eGFR 56 06/29 Result Comment: The eGFR is calculated using the CKD-EPI formula. In most young, healthy individuals the eGFR will be >90 mL/ min/1.73m2. The eGFR declines with age. An eGFR of 60-89 may be normal in mL/min/1.7 some populations, particularly the elderly, for whom the CKD-EPI formula has not been extensively validated. Use of the eGFR is not recommended in the following populations: [place] 3m2 Individuals with unstable creatinine concentrations, including patients and those with serious co-morbid conditions. Patients with extremes in muscle mass or diet. The data above are obtained from the National Kidney Disease Education Program (NKDEP) which additionally recommends that when the eGFR is used in patients with extremes of body mass index for purposes of drug dosing, the eGFR should be multiplied by the estimated BMI. CHEM PANEL B/C Ratio 38 6 - 25 06/29 [place] CHEM PANEL Total 7.8 g/dL 6.4 - 8.4 06/29 Protein [place] CHEM PANEL Albumin Lvl 3.3 g/dL 3.5 - 5.0 06/29 [place] CHEM PANEL CO2 21 meq/L 24 - 32 06/29 [place] CHEM PANEL Globulin 4.5 g/dL 2.7 - 4.2 06/29 [place] CHEM PANEL A/G Ratio 0.7 0.7 - 1.6 06/29 [place] CHEM PANEL ALT 49 unit/L 0 - 65 06/29 [place] CHEM PANEL AST 49 unit/L 0 - 37 06/29 [place] CHEM PANEL Alk Phos 232 unit/L 39 - 136 06/29 [place] CHEM PANEL Calcium Lvl 8.8 mg/dL 8.5 - 10.5 06/29 [place] CHEM PANEL AGAP 14.7 meq/L 10.0 - 06/29 MH 20.0 [place] CHEM PANEL Bili Total 1.2 mg/dL 0.2 - 1.3 06/29 [place] CHEM PANEL BUN 52 mg/dL 7 - 22 06/29 [place] CHEM PANEL Creatinine 1.38 mg/dL 0.50 - 06/29 MH Lvl 1.40 [place] CHEM PANEL Sodium Lvl 139 meq/L 135 - 145 06/29 [place] CHEM PANEL Chloride Lvl 106 meq/L 95 - 109 06/29 [place] CHEM PANEL Glucose Lvl 198 mg/dL 70 - 99 06/29 [place] HEMATOLOGY Platelet 144 K/CMM 133 - 450 06/29 [place] HEMATOLOGY MPV 8.2 fL 7.4 - 10.4 06/29 [place] HEMATOLOGY RDW 14.6 % 11.5 - 06/29 MH 14. [place] HEMATOLOGY MCHC 37.7 g/dL 32.0 - 06/29 MH 36.0 [place] HEMATOLOGY MCH 31.5 pg 27.0 - 06/29 MH 31.0 [place] HEMATOLOGY MCV 83.6 fL 80.0 - 06/29 MH 94.0 [place] HEMATOLOGY Hct 39.6 % 42.0 - 06/29 MH 54.0 [place] HEMATOLOGY Hgb 14.9 g/dL 14.0 - 06/29 MH 18.0 [place] HEMATOLOGY RBC 4.74 M/CMM 4.70 - 06/29 MH 6. [place] HEMATOLOGY WBC 19.4 K/CMM 3.7 - 10.4 06/29 [place] HEMATOLOGY Eosinophils 33.0 % 0.0 - 4.0 06/29 [place] HEMATOLOGY Plt Morph Normal 06/29 [place] (06/29/17 12:51 AM) HEMATOLOGY Atypical 0.0 % <=0.0 % 06/29 Lymphs /2017 [place] HEMATOLOGY Monocytes 2.0 % 2.0 - 12.0 06/29 [place] HEMATOLOGY Basophils 2.0 % 0.0 - 1.0 06/29 [place] HEMATOLOGY Segs 46.0 % 45.0 - 06/29 MH 75.0 /2017 [place] HEMATOLOGY Basophils # 0.4 K/CMM 0.0 - 0.2 06/29 /2017 [place] HEMATOLOGY Lymphocytes 15.0 % 20.0 - 05 MH 40.0 /2017 [place] HEMATOLOGY Eosinophils 6.4 K/CMM 0.0 - 0.5 / MH # /2017 [place] HEMATOLOGY Lymphocytes 2.9 K/CMM 1.0 - 5.5 / # /2017 [place] HEMATOLOGY Monocytes # 0.4 K/CMM 0.0 - 0.8 06/29 [place] HEMATOLOGY Segs-Bands # 9.3 K/CMM 1.5 - 8.1 06/29 [place] HEMATOLOGY Bands 2.0 % 0.0 - 11.0 06/29 [place] Abdomen RUQ Abdomen RUQ Patient Name: LUIS ALBERTO FREEMAN 06/29 - [facility] : 1960; Age: 56 years y/o Male MR: [id number] Read by: Porter Henning MD Dictated Date/time: 06/29/17 07:09 Electronically Signed by: Porter Henning MD 06/29/17 07:11 FINAL REPORT Study: Abdomen RUQ US 06/29/2017 4:43 AM CDT Ordering Physician: Clinical Indication: - elevated lfts. pancreatitis. r/o gallstones; Comparison: None Liver: Hepatic steatosis, not focal lesion or duct dilatation. Gallbladder: Luminal sludge. No gallstone, gallbladder wall thickening or surrounding pathologic fluid. Common bile duct: Normal. Pancreas: Obscured by overlying bowel gas. Right kidney: No hydronephrosis. No pathologic fluid seen in the right upper quadrant. IMPRESSION: Gallbladder luminal sludge. No shadowing gallstone seen No biliary ductal dilatation. Pancreas not visualized. Fatty liver. SL: [id number] Abdomen/Pel Abdomen/Pelv Clinical Indication: Epigastric pain. Elevated lipase. History of hepatitis C. 06/29 - [facility] - [place] contrast CT contrast CT Comparison: CT the abdomen and pelvis 02/03/2009. Read by: Wild Santos MD Dictated Date/time: 06/29/17 03:37 TECHNIQUE: Helical imaging was performed after injection of IV contrast, from the diaphragm through the symphysis with multiplanar reformations obtained. Electronically Signed by: Wild Santos MD 06/29/17 03:55 FINAL REPORT IV CONTRAST: 100 mL of Omnipaque GI CONTRAST: Oral contrast was administered. DLP: 284.19 mGy-cm FINDINGS: LOWER CHEST: The groundglass opacities of both lung bases. Stable left lower lobe lung nodules are identified with the largest measuring 11 mm. LIVER: There is heterogeneous low-attenuation of the liver. The main portal vein is patent. Small upper abdominal varices are seen. These findings are new since the prior examination. BILIARY TREE: There is no significant biliary ductal dilatation. GALLBLADDER: The gallbladder is present. PANCREAS: The pancreas is unremarkable. The pancreatic duct is normal in caliber. SPLEEN: There is an enlarged spleen which measures 13.2 cm in cranial caudal dimension. There is increase in size since the prior study. ADRENALS: The right adrenal gland is unremarkable. The left adrenal gland is unremarkable. KIDNEYS: The kidneys demonstrates normal contrast enhancement. There are no masses. There is no evidence of renal or ureteral calculi. There is no evidence of hydronephrosis. BOWEL: A moderate amount of fecal material is noted throughout the colon. Mild hyperemia of the ascending and transverse colon wall is seen. A small hiatal hernia is noted. APPENDIX: The appendix is within normal limits. PELVIS: There are no pelvic masses. The urinary bladder is unremarkable. The prostate and seminal vesicles are unremarkable. PERITONEUM: There is no evidence for free intraperitoneal fluid or air. SOFT TISSUES: There is a small fat-containing umbilical hernia. LYMPH NODES: There are small bilateral inguinal and mesenteric lymph nodes , which are most likely reactive in etiology. VASCULATURE: There are atherosclerotic calcifications of the nonaneurysmal abdominal aorta and branching vessels. MUSCULOSKELETAL: There are degenerative changes within the visualized spine. IMPRESSION: 1. Findings concerning for mild colitis of the ascending and transverse colon. 2. Heterogeneous low-attenuation of the liver, which may be due to hepatocellular disease. 3. Findings suggestive of portal hypertension with splenomegaly and small upper abdominal varices. SL: KPATEL-M Chest 2 Chest 2 CHEST RADIOGRAPH 2 VIEWS 06/29 - [facility] /2017 - [place] INDICATION: Chest pain Read by: Remington Rachel MD Dictated Date/time: 06/29/17 01:58 Electronically Signed by: Remington Rachel MD 06/29/17 02:00 FINAL REPORT COMPARISON: Chest radiograph 02/03/2009 DISCUSSION: The cardiomediastinal silhouette and pulmonary vasculature are within normal limits. No consolidation, pleural effusion, or pneumothorax are visible. The nipple shadows are superimposed over the lung ba ses. No suspicious pulmonary nodules are identified. No acute bony abnormalities are seen. IMPRESSION: No acute intrathoracic abnormalities are visualized. [id number] Vital Signs Vital Sign Value Date Comments Source Systolic (mm Hg) 122 07/01/2017 [facility] Diastolic (mm Hg) 69 07/01/2017 [facility] Temperature Oral (F) 97.8 F 07/01/2017 [facility] Respitory Rate 18 07/01/2017 [facility] Heart Rate 89 07/01/2017 [facility] Respitory Rate 18 07/01/2017 [facility] Heart Rate 87 07/01/2017 [facility] Temperature Oral (F) 98.3 F 07/01/2017 [facility] Systolic (mm Hg) 119 07/01/2017 [facility] Diastolic (mm Hg) 64 07/01/2017 [facility] Temperature Oral (F) 98.3 F 07/01/2017 [facility] Heart Rate 91 07/01/2017 [facility] Respitory Rate 18 07/01/2017 [facility] Systolic (mm Hg) 125 07/01/2017 [facility] Diastolic (mm Hg) 73 07/01/2017 [facility] BMI Calculated 23.75 06/29/2017 [facility] Weight 55.17 06/29/2017 [facility] Height 152.4 cm 06/29/2017 [facility] Weight 52.8 06/29/2017 [facility] BMI Calculated 22.73 06/29/2017 [facility] Height 152.4 cm 06/29/2017 [facility] Temperature Oral (F) 97.9 F 04/12/2017 [facility] Heart Rate 85 04/12/2017 [facility] Systolic (mm Hg) 180 04/12/2017 [facility] Diastolic (mm Hg) 83 04/12/2017 [facility] Height 152.4 cm 04/12/2017 [facility] Weight 68.636 04/12/2017 [facility] BMI Calculated 29.55 04/12/2017 [facility] Encounters Location Location Encounter Encounter Reason Attending ADM DC Status Source Details Type Number For Provider Date Date Visit Outpatient [id number] ESTUARDO 04/12 [facility] [place] [facility] [id number] Estuardo 04/12 04/13 [facility] Jank /[facility] Phone [id number] 04/13 04/15 Primary Message /2017 [facility] Outside [id number] 04/23 04/25 [id number] 05/02 [facility] Medical /2017 [facility] Inpatient [id number] [facility] 06/29 07/01 [facility] /2017 [facility] Outpatient [id number] ESTUARDO 12/16 [facility] [place] Outpatient [id number] ESTUARDO 03/07 [facility] [place] Procedures Procedure Code Date Perfomer Comments Source Colonoscopy [id number] 06/30/2017 [facility] Reconstruction of [id number] Medical lower leg Group Reconstruction of [id number] [facility] lower leg
--- OUTSIDE RECORDS SUMMARY | 2018-03-15 23:14 | XMS REPORT | Summary of Care ---
:1960 Author Organization [facility] Address [address] [place] [address] Encounter HQ Encntr_alias(FIN) [id number] Date(s): 04/23/17 - 04/24/17 [facility] Len [address] [place], [place] [phone] Vital Signs No data available for this section Problem List No data available for this section Allergies, Adverse Reactions, Alerts Substance Reaction Severity Status penicillins Active Medications No data available for this section Results No data available for this section Immunizations No data available for this section Procedures Procedure Date Related Diagnosis Body Site Status Colonoscopy 06/30/17 Completed Reconstruction of lower leg Completed Social History Social History Type Response Alcohol Past, Type Liquor. Smoking Status Current every day smoker; Type: Cigarettes; Exposure to Tobacco Smoke None; Cigarette Smoking Last 365 Days No; Reg Smoking Cessation Counseling Yes1 entered on: 06/29/17 1one pack every 4 days. Assessment and Plan No data available for this section
--- OUTSIDE RECORDS SUMMARY | 2018-03-15 23:14 | XMS REPORT | Summary of Care ---
:1960 Author Organization [facility] Address [address] [place] [address]- Encounter HQ Encntr_alias(FIN) [id number] Date(s): [facility]/13/17 [facility] [address] [place], [place] [phone] Vital Signs No data available for this [...]
--- OUTSIDE RECORDS SUMMARY | 2018-03-15 23:14 | XMS REPORT | Summary of Care ---
:1960 Author Organization [facility] Address [address] [place] [address]- Encounter HQ Celia(FIN) [id number] Date(s): 04/12/17 - 04/12/17 [facility] [address] [place] [phone] Discharge Disposition: Home or Self Care Attending Physician: Estuardo Francisco MD Vital Signs Most recent to oldest [Reference Range]: 1 Height 152.4 cm (04/12/17 1:09 PM) Temperature Oral [96.4-99.1 DegF] 97.9 DegF (04/12/17 1:09 PM) Blood Pressure [90-140/60-90 mmHg] 180/83 mmHg *HI* (04/12/17 1:09 PM) Peripheral Pulse Rate [60-100 bpm] 85 bpm (04/12/17 1:09 PM) Weight 68.636 kg (04/12/17 1:09 PM) Body Mass Index 29.55 m2 (04/12/17 1:09 PM) Problem List No data available for this section Allergies, Adverse Reactions, Alerts Substance Reaction Severity Status penicillins Active Medications propranolol 80 mg oral capsule, extended release 80 mg=1 cap, PO, Daily, # 30 cap, 2 Refill(s), Pharmacy: [id number] Start Date: 04/12/17 Stop Date: 07/11/17 Status: Orderedspironolactone 25 mg oral tablet 25 mg=1 tab, PO, Daily, # 30 tab, 3 Refill(s) Start Date: 04/12/17 Stop Date: 04/12/17 Status: Discontinuedspironolactone 50 mg oral tablet 50 mg=1 tab, PO, Daily, # 30 tab, 2 Refill(s), Pharmacy: [id number] Start Date: 04/12/17 Stop Date: 07/11/17 Status: Ordered Results No data available for this section [...]
--- OUTSIDE RECORDS SUMMARY | 2018-03-15 23:14 | XMS REPORT | Summary of Care ---
:1960 Author Organization [facility] Address [address] [place] [address]- Encounter HQ Celia(FIN) [id number] Date(s): 06/28/17 - 07/01/[address] [phone] Encounter Diagnosis Noninfective gastroenteritis and colitis, unspecified (Final) - Discharge Disposition: Home or Self Care Attending Physician: Brendon Lee MD Admitting Physician: Brendon Lee MD Vital Signs Most recent to oldest [Reference 1 2 3 Range]: Height 152.4 cm 152.4 cm (06/29/17 5:57 AM) (06/28/17 8:45 PM) Temperature Oral [96.4-99.1 97.8 DegF 98.3 DegF 98.3 DegF DegF] (07/01/17 8:52 AM) (07/01/17 4:43 AM) (06/30/17 11:47 PM) Blood Pressure [90-140/60-90 122/69 mmHg 119/64 mmHg 125/73 mmHg mmHg] (07/01/17 8:52 AM) (07/01/17 4:43 AM) (06/30/17 11:47 PM) Respiratory Rate [14-20 BRMIN] 18 BRMIN 18 BRMIN 18 BRMIN (07/01/17 8:52 AM) (07/01/17 4:43 AM) (06/30/17 11:47 PM) Peripheral Pulse Rate [60-100 89 bpm 87 bpm 91 bpm bpm] (07/01/17 8:52 AM) (07/01/17 4:43 AM) (06/30/17 11:47 PM) Weight 55.17 kg 52.8 kg (06/29/17 5:57 AM) (06/28/17 8:45 PM) Body Mass Index 23.75 m2 22.73 m2 (06/29/17 5:57 AM) (06/28/17 8:45 PM) Problem List No data available for this section Allergies, Adverse Reactions, Alerts Substance Reaction Severity Status penicillins Active Medications acetaminophen 650 mg, 2 tab, Route: PO, Drug form: TAB, Q4H, Dosing Weight 52.8, kg, PRN Pain 1-3/Temp > 100.4 F, Start date: 06/29/17 4:44:00 CDT, Duration: 30 day, Stop date: 07/29/17 4:43:00 CDT Notes: Do not exceed 4 gm/day. (Same as: Tylenol) Start Date: 06/29/17 Stop Date: 07/01/17 Status: DiscontinuedCipro 500 mg oral tablet 500 mg=1 tab, PO, Q12H, X 7 day, # 14 tab, 0 Refill(s), Pharmacy: [id number] Start Date: 07/01/17 Stop Date: 07/08/17 Status: Orderedciprofloxacin 400 mg, 200 mL, Route: IVPB, Drug form: INJ, [id number], Dosing Weight 55.17, kg, Start date: 06/29/17 7:00:00 CDT, Duration: 7 day, Stop date: 07/05/17 19:00:00 CDT, ABX Indication: Intra-abdominal Infection Notes: Do not refrigerate Start Date: 06/29/17 Stop Date: 07/01/17 Status: DiscontinuedCitrate of Magnesia 300 ml, Route: PO, Drug Form: LIQ, Dosing Weight 55.17, kg, ONCE, Start date: 16:28:00 CDT,Stop date: 06/29/17 16:28:00 CDT Notes: (Same as: Citrate of Magnesia)Concentration: 1.745 gm / 30 mL Start Date: 06/29/17 Stop Date: 06/29/17 Status: CompletedFlagyl 500 mg, 100 mL, Route: IVPB, Drug form: INJ, [id number], Dosing Weight 55.17, kg, Start date: 06/29/17 7:00:00 CDT, Duration: 7 day, Stop date: 07/05/17 23:00:00 CDT, ABX Indication: Intra-abdominal Infection Notes: (Same as: Flagyl) Avoid alcohol. Start Date: 06/29/17 Stop Date: 07/01/17 Status: DiscontinuedFlagyl 500 mg oral tablet 500 mg=1 tab, PO, Q8H, X 7 day, # 21 tab, 0 Refill(s), Pharmacy: [facility] Start Date: 07/01/17 Stop Date: 07/08/17 Status: OrderedFleet Enema 133 mL, Route: TX, Dosing Weight 55.17, kg, ONCE, Start date: 06/30/17 8:11:00 CDT, Stop date: 06/30/17 8:11:00 CDT Start Date: 06/30/17 Stop Date: 06/30/17 Status: DeletedFleet Enema 133 mL, Route: TX, Drug Form: HENRIETTA, Dosing Weight 55.17, kg, ONCE, Start date: 06/30/17 8:11:00 CDT,Stop date: 06/30/17 8:11:00 CDT Start Date: 06/30/17 Stop Date: 06/30/17 Status: CompletedGoLYTELY 4,000 ml, Route: PO, Drug Form: PDR/REC, Dosing Weight 55.17, kg, ONCE, Start date: 06/29/17 8:33:00CDT, Stop date: 06/29/17 8:33:00 CDT Notes: (Same as: Nulytely) Start Date: 06/29/17 Stop Date: 06/29/17 Status: DeletedHarvoni 1 tab, PO, Daily, 0 Refill(s) Start Date: 06/29/17 Status: OrderedImodium A-D 2 mg oral tablet 2 mg=1 tab, PO, Q6H, PRN Loose Stools, X 5 day, # 12 tab, 0 Refill(s), Pharmacy : [id number] Start Date: 07/01/17 Stop Date: 07/06/17 Status: Orderedmagnesium citrate 1.745 g/30 mL oral liquid 300 ml, Route: PO, Drug Form: LIQ, Dosing Weight 55.17, kg, ONCE, Start date: 8:33:00 CDT, Stop date: 06/29/17 8:33:00 CDT Notes: (Same as: Citrate of Magnesia)Concentration: 1.745 gm / 30 mL Start Date: 06/29/17 Stop Date: 06/29/17 Status: Deletedmagnesium oxide 400 mg, 1 tab, Route: PO, Drug form: TAB, ONCE, Dosing Weight 55.17, kg, Start date: 07/01/17 11:22:00 CDT, Stop date: 07/01/17 11:22:00 CDT Notes: (Same as: Mag-Ox 400)Magnesium oxide [id number] elemental magnesiumDose= ____mg magnesium oxide (___mg elemental magnesium) Start Date: 07/01/17 Stop Date: 07/01/17 Status: Orderedmorphine Sulfate 4 mg, 1 mL, Route: IVP, Drug form: SOLN, Q4H, Dosing Weight 52.8, kg, PRN Pain Score 7-10, Start date: 06/29/17 4:44:00 CDT, Duration: 30 day, Stop date: 07/29 4:43:00 CDT Notes: (Same as:MORPhine Sulfate) Start Date: 06/29/17 Stop Date: 07/01/17 Status: DiscontinuedNuLYTELY 4,000 ml, Route: PO, Drug Form: PDR/REC, Dosing Weight 55.17, kg, ONCE, Start date: 06/29/17 16:29:00 CDT, Stop date: 06/29/17 16:29:00 CDT Notes: (Same as: Nulytely) Start Date: 06/29/17 Stop Date: 06/29/17 Status: Completedondansetron 4 mg, 2 mL, Route: IVP, Drug form: INJ, Q6H, Dosing Weight 52.8, kg, PRN Nausea & Vomiting, Start date: 06/29/17 4:44:00 CDT, Duration: 30 day, Stop date: 07/29/17 4:43:00 CDT Notes: (Same as: Zofran) MEDICATION WASTE Product Size: 4 mgProduct Wasted: ___ mg Start Date: 06/29/17 Stop Date: 07/01/17 Status: Discontinuedpantoprazole 40 mg, 1 tab, Route: PO, Drug form: ECTAB, BID-Before Meals, Dosing Weight 55.17 , kg, Start date: 06/30/17 16:30:00 CDT, Duration: 30 day, Stop date: 07/30/17 7 :30:00 CDT Notes: Tablet should not be chewed or crushed.(Same as: Protonix) Start Date: 06/30/17 Stop Date: 07/01/17 Status: Discontinuedpantoprazole 40 mg oral enteric coated tablet 40 mg=1 tab, PO, BID-Before Meals, # 60 tab, 0 Refill(s), Pharmacy: [id number] Start Date: 07/01/17 Stop Date: 07/31/17 Status: Orderedpotassium chloride 20 mEq, 1 tab, Route: PO, Drug form: ERTAB, ONCE, Dosing Weight 55.17, kg, Start date: 07/01/17 11:22:00 CDT, Stop date: 07/01/17 11:22:00 CDT Notes: (Same as: K-Dur 20)"Do Not Crush"For patients unable to swallow tablet, dissolve in one half glass of water. Allow about 2 minutes for the tablets to disintegrate. Stir before giving to prepare slurry and administer.Please exclude Patients with feeding tube less than 14 [place] (Dobhoff, J-tube etc) and pediatric and patients. With food and full glass of water Start Date: 07/01/17 Stop Date: 07/01/17 Status: Orderedpotassium chloride 10 mEq, 100 mL, Route: IVPB, Drug form: INJ, ONCE, Dosing Weight 52.8, kg, Start date: 06/29/17 1:54:00 CDT, Stop date: 06/29/17 1:54:00 CDT Notes: Infuse at a rate of 10 mEq/hr.(Same as: KCL) Start Date: 06/29/17 Stop Date: 06/29/17 Status: Completedpotassium chloride 40 mEq, 2 tab, Route: PO, Drug form: ERTAB, ONCE, Dosing Weight 52.8, kg, Priority: STAT, Start date: 06/29/17 1:54:00 CDT, Stop date: 06/29/17 1:54:00 CDT Notes: (Same as: K-Dur 20)"Do Not Crush"For patients unable to swallow tablet, dissolve in one half glass of water. Allow about 2 minutes for the tablets to disintegrate. Stir before giving to prepare slurry and administer.Please exclude Patients with feeding tube less than 14 [place] (Dobhoff, J-tube etc) and pediatric and patients. With food and full glass of water Start Date: 06/29/17 Stop Date: 06/29/17 Status: Completedpotassium chloride 10 mEq, Route: IVPB, Q1H, Dosing Weight 55.17, kg, Total Dose=20 meq, Start date : 06/29/17 14:00:00 CDT, Duration: 2 doses or times, Stop date: 06/29/17 15:00: 00 CDT, Peripheral Line Start Date: 06/29/17 Stop Date: 06/29/17 Status: Canceledpotassium chloride 40 mEq, 2 tab, Route: PO, Drug form: ERTAB, ONCE, Dosing Weight 55.17, kg, Start date: 06/29/17 13:03:00 CDT, Stop date: 06/29/17 13:03:00 CDT Notes: (Same as: K-Dur 20) Start Date: 06/29/17 Stop Date: 06/29/17 Status: Completedpotassium chloride 20 mEq/15 mL oral liquid 40 mEq, 30 mL, Route: PO, Drug form: LIQ, ONCE, Dosing Weight 55.17, kg, Start date: 06/30/17 7:54:00 CDT, Stop date: 06/30/17 7:54:00 CDT Notes: (Same as: Potassium Chloride) Start Date: 06/30/17 Stop Date: 06/30/17 Status: Completedpotassium phosphate + Sodium Chloride 0.9% IV 250 mL 15 mmol, 5 mL, Route: IVPB, ONCE, Dosing Weight 55.17, kg, Start date: 06/29/17 13:59:00 CDT, Stop date: 06/29/17 13:59:00 CDT Notes: (Same as: K Phosphate.) 1 mMol phoshate has 1.47 mEq potassium Infuse over 4 hours Start Date: 06/29/17 Stop Date: 06/29/17 Status: CompletedSaline Flush 0.9% 10 ml, Route: IVP, Drug Form: INJ, Dosing Weight 52.8, kg, PRN, PRN Line Flush, Start date: 184:44:00 CDT, Duration: 30 day, Stop date: 07/29/17 4:43:00 CDT Notes: (Same as: BD Posiflush) Start Date: 06/29/17 Stop Date: 07/01/17 Status: DiscontinuedSodium Chloride 0.9% (Bolus) IV 1,000 mL, 1000 ml/hr, Infuse Over: 1 hr, Route: IV, 1,000, Drug form: INJ, ONCE , Priority: STAT, Dosing Weight 52.8 kg, Start date: 06/29/17 4:23:00 CDT, Stop date: 06/29/17 4:23:00 CDT Start Date: 06/29/17 Stop Date: 06/29/17 Status: CompletedSodium Chloride 0.9% IV 1,000 mL 1,000 mL, Rate: 125 ml/hr, Infuse over: 8 hr, Route: IV, Dosing Weight 52.8 kg, Total Volume: 1,000,Start date: 06/29/17 4:44:00 CDT, Duration: 30 day, Stop date: 07/29/17 4:43:00 CDT, 1.51, m2 Start Date: 06/29/17 Stop Date: 07/01/17 Status: DiscontinuedSodium Chloride 0.9% IV 1,000 mL 1,000 mL, Rate: 25 ml/hr, Infuse over: 40 hr, Route: IV, Dosing Weight 55.17 kg , Total Volume: 1,000, Start date: 06/30/17 9:15:00 CDT, Duration: 30 day, Stop date: 07/30/17 9:14:00 CDT, 1.55, m2 Start Date: 06/30/17 Stop Date: 06/30/17 Status: Discontinued Results ELECTROLYTES Most recent to oldest 1 2 3 [Reference Range]: Sodium Lvl [135-145 mEq/L] 145 mEq/L 144 mEq/L 139 mEq/L (07/01/17 4:57 AM) (06/30/17 4:50 AM) (06/29/17 12:51 AM) Potassium Lvl [3.5-5.1 mEq/L] 3.5 mEq/L 3.5 mEq/L 2.9 mEq/L 1 (07/01/17 4:57 AM) (06/30/17 12:21 PM) *CRIT* (06/30/17 4:50 AM) Chloride Lvl [95-109 mEq/L] 121 mEq/L 119 mEq/L 106 mEq/L *HI* *HI* (06/29/17 12:51 AM) (07/01/17 4:57 AM) (06/30/17 4:50 AM) CO2 [24-32 mEq/L] 16 mEq/L 16 mEq/L 21 mEq/L *LOW* *LOW* *LOW* (07/01/17 4:57 AM) (06/30/17 4:50 AM) (06/29/17 12:51 AM) AGAP [10.0-20.0 mEq/L] 11.5 mEq/L 11.9 mEq/L 14.7 mEq/L (07/01/17 4:57 AM) (06/30/17 4:50 AM) (06/29/17 12:51 AM) 1Result Comment: Critical Result(s) called to David NAYLOR at 06/30/2017 05:39 by D ^2. Read back OK.CHEM PANEL Most recent to oldest 1 2 3 [Reference Range]: Creatinine Lvl [0.50-1.40 0.84 mg/dL 0.89 mg/dL 1.38 mg/dL mg/dL] (07/01/17 4:57 AM) (06/30/17 4:50 AM) (06/29/17 12:51 AM) eGFR 97 mL/min/1.73m2 1 94 mL/min/1.73m2 2 56 mL/min/1.73m2 3 *NA* *NA* *NA* (07/01/17 4:57 AM) (06/30/17 4:50 AM) (06/29/17 12:51 AM) BUN [7-22 mg/dL] 20 mg/dL 25 mg/dL 52 mg/dL (07/01/17 4:57 AM) *HI* *HI* (06/30/17 4:50 AM) (06/29/17 12:51 AM) B/C Ratio [6-25] 24 28 38 (07/01/17 4:57 AM) *HI* *HI* (06/30/17 4:50 AM) (06/29/17 12:51 AM) Glucose Lvl [70-99 mg/dL] 146 mg/dL 111 mg/dL 4 198 mg/dL *HI* *HI* *HI* (07/01/17 4:57 AM) (06/30/17 4:50 AM) (06/29/17 12:51 AM) Total Protein [6.4-8.4 g/dL] 5.4 g/dL 5.6 g/dL 7.8 g/dL *LOW* *LOW* (06/29/17 12:51 AM) (07/01/17 4:57 AM) (06/30/17 4:50 AM) Albumin Lvl [3.5-5.0 g/dL] 2.2 g/dL 2.4 g/dL 3.3 g/dL *LOW* *LOW* *LOW* (07/01/17 4:57 AM) (06/30/17 4:50 AM) (06/29/17 12:51 AM) Globulin [2.7-4.2 g/dL] 3.2 g/dL 3.2 g/dL 4.5 g/dL (07/01/17 4:57 AM) (06/30/17 4:50 AM) *HI* (06/29/17 12:51 AM) A/G Ratio [0.7-1.6] 0.7 0.8 0.7 (07/01/17 4:57 AM) (06/30/17 4:50 AM) (06/29/17 12:51 AM) Calcium Lvl [8.5-10.5 mg/dL] 7.2 mg/dL 7.2 mg/dL 8.8 mg/dL *LOW* *LOW* (06/29/17 12:51 AM) (07/01/17 4:57 AM) (06/30/17 4:50 AM) Phosphorus [2.5-4.5 mg/dL] 2.3 mg/dL *LOW* (06/29/17 12:51 AM) Magnesium Lvl [1.8-2.4 1.6 mg/dL 2.0 mg/dL mg/dL] *LOW* (06/29/17 12:51 AM) (07/01/17 4:57 AM) ALT [0-65 unit/L] 63 unit/L 74 unit/L 49 unit/L (07/01/17 4:57 AM) *HI* (06/29/17 12:51 AM) (06/30/17 4:50 AM) AST [0-37 unit/L] 57 unit/L 87 unit/L 49 unit/L *HI* *HI* *HI* (07/01/17 4:57 AM) (06/30/17 4:50 AM) (06/29/17 12:51 AM) Alk Phos [39-136 unit/L] 241 unit/L 248 unit/L 232 unit/L *HI* *HI* *HI* (07/01/17 4:57 AM) (06/30/17 4:50 AM) (06/29/17 12:51 AM) Bili Total [0.2-1.3 mg/dL] 2.3 mg/dL 5.6 mg/dL 1.2 mg/dL *HI* *HI* (06/29/17 12:51 AM) (07/01/17 4:57 AM) (06/30/17 4:50 AM) Bili Direct [0.0-0.3 mg/dL] 1.2 mg/dL *HI* (07/01/17 4:57 AM) Lipase Lvl [73-393 unit/L] 877 unit/L 3080 unit/L *HI* *HI* (07/01/17 4:57 AM) (06/29/17 12:51 AM) 1Result Comment: The eGFR is calculated using the CKD-EPI formula. In most young , healthy individualsthe eGFR will be >90 mL/min/1.73m2. The eGFR declines with age. An eGFR of 60-89 may be normal insome populations, particularly the elderly, for whom the CKD-EPI formula has not been extensively validated. Use of the eGFR is not recommended in the following populations: Individuals with unstable creatinine concentrations, including patients and those with serious co-morbid conditions. Patients with extremes in muscle mass or diet. The data above are obtained from the National Kidney Disease Education Program ( NKDEP) which additionally recommends that when the eGFR is used in patients with extremes of body mass index for purposesof drug dosing, the eGFR should be multiplied by the estimated BMI.2Result Comment: The eGFR is calculated using the CKD-EPI formula. In most young, healthy individualsthe eGFR will be >90 mL/min/1.73m2. The eGFR declines with age. An eGFR of 60-89 may be normal insome populations, particularly the elderly, for whom the CKD-EPI formula has not been extensively validated. Use of the eGFR is not recommended in the following populations: Individuals with unstable creatinine concentrations, including patients and those with serious co-morbid conditions. Patients with extremes in muscle mass or diet. The data above are obtained from the National Kidney Disease Education Program ( NKDEP) which additionally recommends that when the eGFR is used in patients with extremes of body mass index for purposesof drug dosing, the eGFR should be multiplied by the estimated BMI.3Result Comment: The eGFR is calculated using the CKD-EPI formula. In most young, healthy individualsthe eGFR will be >90 mL/min/1.73m2. The eGFR declines with age. An eGFR of 60-89 may be normal insome populations, particularly the elderly, for whom the CKD-EPI formula has not been extensively validated. Use of the eGFR is not recommended in the following populations: Individuals with unstable creatinine concentrations, including patients and those with serious co-morbid conditions. Patients with extremes in muscle mass or diet. The data above are obtained from the National Kidney Disease Education Program ( NKDEP) which additionally recommends that when the eGFR is used in patients with extremes of body mass index for purposesof drug dosing, the eGFR should be multiplied by the estimated BMI.4Result Comment: .CARDIAC ENZYMES Most recent to oldest [Reference Range]: 1 2 3 Total CK [12-191 unit/L] 58 unit/L (06/29/17 12:51 AM) Troponin-I [0.00-0.40 ng/mL] <0.02 ng/mL (06/29/17 12:51 AM) URINE AND STOOL Most recent to oldest [Reference Range]: 1 2 3 UA Turbidity [Clear] Clear (06/29/17 4:02 AM) UA Color [Yellow] Yellow *NA* (06/29/17 4:02 AM) UA pH [5.0-8.0] 6.0 (06/29/17 4:02 AM) UA Spec Grav [<=1.030] 1.018 (06/29/17 4:02 AM) UA Glucose [Negative mg/dL] Negative mg/dL *NA* (06/29/17 4:02 AM) UA Blood [Negative] Negative (06/29/17 4:02 AM) UA Ketones [Negative mg/dL] Negative mg/dL *NA* (06/29/17 4:02 AM) UA Protein [Negative mg/dL] Negative mg/dL (06/29/17 4:02 AM) UA Urobilinogen [0.1-1.0 mg/dL] <=1.0 mg/dL *NA* (06/29/17 4:02 AM) UA Bili [Negative] Negative *NA* (06/29/17 4:02 AM) UA Leuk Est [Negative] Negative (06/29/17 4:02 AM) UA Nitrite [Negative] Negative (06/29/17 4:02 AM) UA WBC [0-5 /HPF] 1 /HPF (06/29/17 4:02 AM) UA RBC [0-2 /HPF] 2 /HPF (06/29/17 4:02 AM) UA Sq Epi [Few /LPF] Occasional /LPF *NA* (06/29/17 4:02 AM) UA Mucus [None Seen /LPF] Few /LPF *NA* (06/29/17 4:02 AM) HEMATOLOGY Most recent to oldest 1 2 3 [Reference Range]: WBC [3.7-10.4 K/CMM] 8.5 K/CMM 10.4 K/CMM 19.4 K/CMM (07/01/17 4:57 AM) (06/30/17 4:50 AM) *HI* (06/29/17 12:51 AM) RBC [4.70-6.10 M/CMM] 3.35 M/CMM 3.61 M/CMM 4.74 M/CMM *LOW* *LOW* (06/29/17 12:51 AM) (07/01/17 4:57 AM) (06/30/17 4:50 AM) Hgb [14.0-18.0 g/dL] 10.9 g/dL 11.4 g/dL 14.9 g/dL *LOW* *LOW* (06/29/17 12:51 AM) (07/01/17 4:57 AM) (06/30/17 4:50 AM) Hct [42.0-54.0 %] 28.4 % 30.4 % 39.6 % *LOW* *LOW* *LOW* (07/01/17 4:57 AM) (06/30/17 4:50 AM) (06/29/17 12:51 AM) MCV [80.0-94.0 fL] 84.6 fL 84.1 fL 83.6 fL (07/01/17 4:57 AM) (06/30/17 4:50 AM) (06/29/17 12:51 AM) MCH [27.0-31.0 pg] 32.4 pg 31.5 pg 31.5 pg *HI* *HI* *HI* (07/01/17 4:57 AM) (06/30/17 4:50 AM) (06/29/17 12:51 AM) MCHC [32.0-36.0 g/dL] 38.3 g/dL 37.4 g/dL 37.7 g/dL *HI* *HI* *HI* (07/01/17 4:57 AM) (06/30/17 4:50 AM) (06/29/17 12:51 AM) RDW [11.5-14.5 %] 14.6 % 14.8 % 14.6 % *HI* *HI* *HI* (07/01/17 4:57 AM) (06/30/17 4:50 AM) (06/29/17 12:51 AM) MPV [7.4-10.4 fL] 8.4 fL 8.3 fL 8.2 fL (07/01/17 4:57 AM) (06/30/17 4:50 AM) (06/29/17 12:51 AM) Platelet [133-450 K/CMM] 80 K/CMM 102 K/CMM 144 K/CMM *LOW* *LOW* (06/29/17 12:51 AM) (07/01/17 4:57 AM) (06/30/17 4:50 AM) Segs [45.0-75.0 %] 53.3 % 54.2 % 46.0 % (07/01/17 4:57 AM) (06/30/17 4:50 AM) (06/29/17 12:51 AM) Bands [0.0-11.0 %] 2.0 % (06/29/17 12:51 AM) Lymphocytes [20.0-40.0 %] 13.4 % 10.1 % 15.0 % *LOW* *LOW* *LOW* (07/01/17 4:57 AM) (06/30/17 4:50 AM) (06/29/17 12:51 AM) Atypical Lymphs [<=0.0 %] 0.0 % (06/29/17 12:51 AM) Monocytes [2.0-12.0 %] 5.8 % 6.1 % 2.0 % (07/01/17 4:57 AM) (06/30/17 4:50 AM) (06/29/17 12:51 AM) Eosinophils [0.0-4.0 %] 26.8 % 29.4 % 33.0 % *HI* *HI* *HI* (07/01/17 4:57 AM) (06/30/17 4:50 AM) (06/29/17 12:51 AM) Basophils [0.0-1.0 %] 0.7 % 0.2 % 2.0 % (07/01/17 4:57 AM) (06/30/17 4:50 AM) *HI* (06/29/17 12:51 AM) Segs-Bands # [1.5-8.1 K/CMM] 4.5 K/CMM 5.6 K/CMM 9.3 K/CMM (07/01/17 4:57 AM) (06/30/17 4:50 AM) *HI* (06/29/17 12:51 AM) Lymphocytes # [1.0-5.5 1.1 K/CMM 1.1 K/CMM 2.9 K/CMM K/CMM] (07/01/17 4:57 AM) (06/30/17 4:50 AM) (06/29/17 12:51 AM) Monocytes # [0.0-0.8 K/CMM] 0.5 K/CMM 0.6 K/CMM 0.4 K/CMM (07/01/17 4:57 AM) (06/30/17 4:50 AM) (06/29/17 12:51 AM) Eosinophils # [0.0-0.5 2.3 K/CMM 3.1 K/CMM 6.4 K/CMM K/CMM] *HI* *HI* *HI* (07/01/17 4:57 AM) (06/30/17 4:50 AM) (06/29/17 12:51 AM) Basophils # [0.0-0.2 K/CMM] 0.1 K/CMM 0.4 K/CMM (07/01/17 4:57 AM) *HI* (06/29/17 12:51 AM) Plt Morph Normal (06/29/17 12:51 AM) PT [12.0-14.7 seconds] 21.7 seconds *HI* (07/01/17 4:57 AM) INR [0.85-1.17] 1.87 *HI* (07/01/17 4:57 AM) MOLECULAR DIAGNOSTIC Most recent to oldest [Reference Range]: 1 2 3 C difficile DNA [Negative] Negative (06/29/17 10:13 AM) Immunizations No data available for this section Procedures Procedure Date Related Diagnosis Body Site Status Reconstruction of lower leg Completed Social History Social History Type Response Alcohol Past, Type Liquor. Smoking Status Current every day smoker; Type: Cigarettes; Exposure to Tobacco Smoke None; Cigarette Smoking Last 365 Days No; Reg Smoking Cessation Counseling Yes1 entered on: 06/29/17 1one pack every 4 days. Assessment and Plan Extracted from: Title: Clinical Document Author: Brendon Lee MD Date: 06/30/17 Progress Note - Daily [facility] Completed: Friday, JUNE 30, 2017, 14:13 by Brendon Lee MD RM: [id number] - 1P, BL PN4 LUIS ALBERTO FREEMAN 56y (: 1960) [facility] : [phone] Attending: Brendon Lee MD Service: Internal Medicine Reason for Admission: ACUTE COLITIS, ACUTE PANCREATITIS, HYPOKALEMIA Working DRG: Code status: Full Code [Ordered] Current diet: Isolation: No Isolation/Standard Precautions Allergies: penicillins SUBJECTIVE Patient seen and examined at bedside Continues to have diarrhea EGD and colonoscopy this morning that showed erosive esophagitis and hemorrhoids Denied nausea, vomiting, fever, chills or abdominal cramping OBJECTIVE General: Comfortable, No acute distress HEENT: NC, AT, No conjunctival pallor, PERRLA, Neck: Supple, No JVD or lymphadenopathy Heart: S1+S2+0, no murmurs, rubs or gallops Lungs: Clear to auscultation bilaterally, no wheezing or rhonchi Abdomen: Soft, non-tender, non-distended, BS +, no guarding or rigidity Extremities: No edema Neuro: AAO x 3, no focal deficits Skin: No skin rashes 24hr Labs 06/30 1221 Potassium Lvl 3.5 06/30 0450 Sodium Lvl 144 Potassium Lvl 2.9 C Chloride Lvl 119 H CO2 16 L AGAP 11.9 Glucose Lvl 111 H Creatinine Lvl 0.89 BUN 25 H B/C Ratio 28 H Total Protein 5.6 L Albumin Lvl 2.4 L Globulin 3.2 A/G Ratio 0.8 Calcium Lvl 7.2 L ALT 74 H AST 87 H Alk Phos 248 H Bili Total 5.6 H eGFR 94 WBC 10.4 RBC 3.61 L Hgb 11.4 L Hct 30.4 L MCV 84.1 MCH 31.5 H MCHC 37.4 H RDW 14.8 H Platelet 102 L MPV 8.3 Segs 54.2 Monocytes 6.1 Lymphocytes 10.1 L Eosinophils 29.4 H Basophils 0.2 Segs-Bands # 5.6 Lymphocytes # 1.1 Monocytes # 0.6 Eosinophils # 3.1 H 06/29 1013 C difficile DNA Negative Jimenes still necessary (Yes/No): Line still necessary (Yes/No): Vitals Tmp(F) Pulse BP RR SpO2 FIO2 06/30 12:00 97.4 80 126/72 22 100 --- 06/30 11:45 97.7 86 96/67 13 100 --- 06/30 11:30 ---- 73 93/67 16 100 --- 05 11:23 97.5 79 128/52 18 99 4.0L/m 06/30 09:23 98.1 88 141/76 21 100 --- 24 Hr Tmax: 98.1F (36.72c) at 06/30 09:23 Vital Signs are the last 5 in the past 48 hours. Date Wt(kg) Wt(lb) Ht(cm) Ht(in) Method 06/29 55.17 121.37 152.40 60.00 Measured 06/28 (initial) 52.80 116.16 Measured 06/28 152.40 60.00 Stated I&O Record In Out Bal 06/30 24hr Tot 180 0 180 06/29 24hr Tot 5615 0 5615 Medications (17) Active Scheduled Meds (2): 06/29/17 ciprofloxacin 400 mg IVPB [id number] 200 ml/hr 06/29/17 metroNIDAZOLE (Flagyl) 500 mg IVPB ABXQ8H 200 ml/hr Unscheduled Meds: None PRN Meds (4): 06/29/17 acetaminophen 650 mg PO Q4H 06/29/17 morphine Sulfate 4 mg IVP Q4H 06/29/17 ondansetron 4 mg IVP Q6H 06/29/17 sodium chloride (Saline Flush 0.9%) 10 ml IVP PRN One Time Meds (10): 06/29/17 (Completed) Sodium Chloride 0.9% IV (Sodium Chloride 0.9% (Bolus) IV ) 1,000 mL IV ONCE 1000 ml/hr 06/29/17 (Deleted) magnesium citrate (magnesium citrate 1.745 g/30 mL oral liquid) 300 ml PO ONCE 06/29/17 (Completed) magnesium citrate (Citrate of Magnesia) 300 ml PO ONCE 06/29/17 (Deleted) polyethylene glycol 3350 with electrolytes (GoLYTELY) 4, 000 ml PO ONCE 06/29/17 (Completed) polyethylene glycol 3350 with electrolytes (NuLYTELY) 4, 000 ml PO ONCE 06/29/17 (not done) potassium chloride 40 mEq PO ONCE 06/30/17 (Completed) potassium chloride (potassium chloride 20 mEq/15 mL oral liquid) 40 mEq PO ONCE 06/29/17 (Completed) potassium phosphate + Sodium Chloride 0.9% IV 250 mL 15 mmol IVPB ONCE 63.75 ml/hr 06/30/17 (Completed) sodium biphosphate-sodium phosphate (Fleet Enema) 133 mL TX ONCE 06/30/17 (Deleted) sodium biphosphate-sodium phosphate (Fleet Enema) 133 mL TX ONCE Continuous Infusions (1): 06/29/17 Sodium Chloride 0.9% IV 1,000 mL 1,000 mL 125 ml/hr ASSESSMENT Diarrhea Acute colitis Eosinophilia Liver cirrhosis History of hepatitis C Hypokalemia Elevated LFTs Plan -Continue with the ciprofloxacin and Flagyl -Continue with IV fluid hydration -Status post EGD and colonoscopy today which showed erosive esophagitis and gastritis, biopsies were taken -We will add a PPI twice daily -LFTs trending up, MRCP ordered per GI, appreciate recommendations -Eosinophilia noted which could be due to underlying parasitic infection, await stool studies, if negative patient should get hematologic evaluation -Resume hepatitis C medications upon discharge -Repleted potassium DVT prophylaxis per protocol, will avoid pharmacologic prophylaxis in setting of severe esophagitis and gastritis with underlying liver cirrhosis Disposition: Despite discharge in 1-2 midnights pending clinical course Extracted from: Title: GI Consultation Note-Michelle Author: Jeremiah Martinez MD Date: Impression and Plan Diarrhea Upper abdominal pain Peripheral blood eosinophilia Ascending/transverse colon colitis on CT Liver cirrhosis Chronic hepatitis C Leukocytosis Possible etiologies for his recent diarrhea include infectious etiologies which need to be ruled out. Given the CAT scan abdomen and pelvis findings, infectious or inflammatory etiologies include inflammatory bowel disease needs to be considered. He has significant eosinophilia with 33% eosinophils reported on the peripheral blood smear; discontinued and parasitic infection/infestation which may account for his diarrhea or a primary hematologica l problem. Hematology consultation is recommended Check stool for C. difficile, culture and ova and parasites as well as fecal pancreatic elastase Tobacco abstinence His diarrhea may be a side effect of his Harvoni for chronic hepatitis C. We will hold Harvoni while he is in the hospital and resume therapy based on clinical course as an outpatient Upper endoscopy and colonoscopy are recommended and were discussed with the patient including the risks and benefits and this will be planned for tomorrow We will resume his diuresis consisting of spironolactone and Lasix after his electrolytes are corrected
--- OUTSIDE RECORDS SUMMARY | 2018-03-15 23:14 | XMS REPORT | Summary of Care ---
:1960 Author Organization [facility] Address [address] [place], [place] [address]- Encounter HQ Encntr_alias(FIN) [id number] Date(s): 04/30/17 - 05/01/17 [facility] [address] [place], [place] [address] [phone] Vital Signs No data available for this [...]
[2018-03-16] MEDS ORDERED: PANTOPRAZOLE 40 MG INJ ONE (00:32)
[2018-03-16 00:46] LABS: ALT/SGPT 27 U/L (12-78); AST/SGOT 43 U/L (15-37); Absolute Monocytes 0.6 K/uL (0.1-1.3); Absolute Neutrophil 3.1 K/uL (1.8-8.0); Albumin 1.8 g/dL (3.4-5.0); Alkaline Phosphatase 172 U/L (45-117); BUN Blood Urea Nitrogen 19 mg/dL (7-18); Basophils % 1.1 % (0-1.3); Bicarbonate 26 mmol/L (21-32); Bilirubin Direct 0.4 mg/dL (0-0.2); Bilirubin Total 0.9 mg/dL (0.2-1.0); Eosinophils % 4.8 % (0-4.4); Glucose Level 172 mg/dL (74-106); Hematocrit 31.4 % (39.6-49.0); Lipase 335 U/L (73-393); Lymphocytes % 20.4 % (15.3-44.8); MPV 8.6 fL (7.6-11.3); Monocytes % 12.1 % (3.3-12.3); NT PRO-BNP 622 pg/mL (<125); Potassium 4.8 mmol/L (3.5-5.1); Sodium Level 141 mmol/L (136-145); Troponin (Emerg Dept Use Only) < 0.02 ng/mL (0.0-0.045)
[2018-03-16 00:47] LABS: Protime INR 1.18
--- NOTE | 2018-03-16 01:33 | EDPHYS ---
Physician Documentation [facility] Name: Mumtaz Mace Age: 57 yrs Sex: Male : 1960 Arrival Date: 03/15/2018 Time: 23:12 Bed 18 Private MD: ED Physician Breezy Tomlin HPI: 03/16 00:21 This 57 yrs old Male presents to ER via Ambulatory with complaints of FLUID yamini RETENTION. 00:21 The patient presents with decreased range of motion, pain, swelling, tenderness. The yamini complaints affect the abdomen, right leg and left leg. Context: cirrhosis. Onset: The symptoms/episode began/occurred 5 day(s) ago. Modifying factors: The symptoms are alleviated by elevating leg, remaining still, the symptoms are aggravated by weight bearing, bending knee. Associated signs and symptoms: Pertinent positives: swelling, of the right leg and left leg. The patient presents with abdominal distention that is diffuse. Associated signs and symptoms: Pertinent positives:. Historical: - Allergies: 03/15 23:27 PENICILLINS; tl3 - Home Meds: 23:27 Spironolacton-Hydrochlorothiaz Oral [Active]; Propranolol Oral [Active]; pantoprazole tl3 40 mg oral TbEC 1 tab once daily [Active]; - PMHx: 23:27 Hepatitis; tl3 - PSHx: 23:27 Left ankle surgery; tl3 - Immunization history:: Adult Immunizations up to date. - Social history:: Smoking status: Patient/guardian denies using tobacco, but has a distant history of tobacco abuse. - Ebola Screening: : No symptoms or risks identified at this time. - Family history:: not pertinent. ROS: 03/16 00:21 Constitutional: Negative for fever, chills, and weight loss, Eyes: Negative for injury, yamini pain, redness, and discharge, ENT: Negative for injury, pain, and discharge, Neck: Negative for injury, pain, and swelling, Cardiovascular: Negative for chest pain, palpitations, and edema, Respiratory: Negative for shortness of breath, cough, wheezing, and pleuritic chest pain, Back: Negative for injury and pain, : Negative for injury, bleeding, discharge, and swelling, Skin: Negative for injury, rash, and discoloration, Neuro: Negative for headache, weakness, numbness, tingling, and seizure. Abdomen/GI: Positive for abdominal pain, of the suprapubic area, right upper quadrant, left upper quadrant, right lower quadrant and left lower quadrant. MS/extremity: Positive for decreased range of motion, of the right leg and left leg. Exam: 00:21 Constitutional: This is a well developed, well nourished patient who is awake, alert, yamini and in no acute distress. Head/Face: Normocephalic, atraumatic. Eyes: Pupils equal round and reactive to light, extra-ocular motions intact. Lids and lashes normal. Conjunctiva and sclera are non-icteric and not injected. Cornea within normal limits. Periorbital areas with no swelling, redness, or edema. ENT: Nares patent. No nasal discharge, no septal abnormalities noted. Tympanic membranes are normal and external auditory canals are clear. Oropharynx with no redness, swelling, or masses, exudates, or evidence of obstruction, uvula midline. Mucous membranes moist. Neck: Trachea midline, no thyromegaly or masses palpated, and no cervical lymphadenopathy. Supple, full range of motion without nuchal rigidity, or vertebral point tenderness. No Meningismus. Chest/axilla: Normal chest wall appearance and motion. Nontender with no deformity. No lesions are appreciated. Cardiovascular: Regular rate and rhythm with a normal S1 and S2. No gallops, murmurs, or rubs. Normal PMI, no JVD. No pulse deficits. Respiratory: Lungs have equal breath sounds bilaterally, clear to auscultation and percussion. No rales, rhonchi or wheezes noted. No increased work of breathing, no retractions or nasal flaring. Back: No spinal tenderness. No costovertebral tenderness. Full range of motion. Male : Normal genitalia with no discharge or lesions. Neuro: Awake and alert, GCS 15, oriented to person, place, time, and situation. Cranial nerves II-XII grossly intact. Motor strength 5/5 in all extremities. Sensory grossly intact. Cerebellar exam normal. Normal gait. Psych: Awake, alert, with orientation to person, place and time. Behavior, mood, and affect are within normal limits. 00:21 Abdomen/GI: Inspection: distension, Bowel sounds: normal, Palpation: nontender, Liver: is firm, Hernia: not appreciated. Vital Signs: 03/15 23:27 BP 168 / 64; Pulse 67; Resp 20; Temp 98.1; Pulse Ox 100% ; Weight 77.11 kg; Height 5 tl3 ft. (152.40 cm); 03/16 00:30 BP 169 / 69; Pulse 72; Resp 20; Pulse Ox 100% on R/A; Pain 0/10; mg2 02:23 BP 156 / 68; Pulse 71; Resp 19; Temp 98; Pulse Ox 100% on R/A; Pain 3/10; mg2 03/15 23:27 Body Mass Index 33.20 (77.11 kg, 152.40 cm) tl3 MDM: 03/15 23:51 Patient medically screened. [facility] 03/16 00:21 Data reviewed: vital signs, nurses notes, lab test result(s), EKG, radiologic studies, [facility] plain films. 03/15 23:52 Order name: Basic Metabolic Panel [facility] 03/15 23:52 Order name: CBC with Diff [facility] 03/15 23:52 Order name: LFT's [facility] 03/15 23:52 Order name: Magnesium [facility] 03/15 23:52 Order name: NT PRO-BNP [facility] 03/15 23:52 Order name: PT-INR [facility] 03/15 23:52 Order name: Troponin (emerg Dept Use Only) [facility] 03/15 23:52 Order name: Lipase [facility] 03/15 23:52 Order name: Urine Culture [facility] 03/16 00:19 Order name: AMMONIA [facility] 03/16 00:46 Order name: Basic Metabolic Panel; Complete Time: 01:27 [facility] 03/16 00:46 Order name: Liver (Hepatic) Function; Complete Time: 01:27 [facility] 03/16 00:46 Order name: Troponin (Emerg Dept Use Only); Complete Time: 01:27 [facility] 03/16 00:46 Order name: NT PRO-BNP; Complete Time: 01:27 [facility] 03/15 23:52 Order name: XRAY Chest (1 view) [facility] 03/15 23:52 Order name: EKG; Complete Time: 23:54 [facility] 03/15 23:52 Order name: Cardiac monitoring; Complete Time: 00:20 [facility] 03/15 23:52 Order name: EKG - Nurse/Tech; Complete Time: 00:20 [facility] 03/15 23:52 Order name: IV Saline Lock; Complete Time: 00:20 [facility] 03/15 23:52 Order name: Labs collected and sent; Complete Time: 00:20 [facility] 03/16 00:46 Order name: Magnesium; Complete Time: [facility] 03/16 00:46 Order name: Lipase; Complete Time: [facility] 03/16 00:52 Order name: CBC with Automated Diff; Complete Time: [facility] 03/16 00:53 Order name: Protime (+INR); Complete Time: [facility] 03/16 00:53 Order name: Ammonia; Complete Time: [facility] 03/16 02:07 Order name: Urine Dipstick--Ancillary (enter results) 03/15 23:52 Order name: O2 Per Protocol; Complete Time: 00:20 [facility] 03/15 23:52 Order name: O2 Sat Monitoring; Complete Time: 00:20 [facility] 03/15 23:52 Order name: Urine Dipstick-Ancillary (obtain specimen); Complete Time: 02:06 [facility] Administered Medications: 00:30 Drug: ProTONIX 40 mg Route: IVP; Site: right forearm; mg2 02:26 Follow up: Response: No adverse reaction mg2 02:05 Drug: Lactulose 30 grams Volume: 45 ml; Route: PO; mg2 02:18 Follow up: Response: No adverse reaction mg2 02:06 Drug: Lasix 40 mg Route: IVP; Site: right forearm; mg2 02:18 Follow up: Response: No adverse reaction mg2 02:18 Drug: Spironolactone 50 mg Route: PO; mg2 02:19 Follow up: Response: No adverse reaction mg2 Disposition: 03/16/18 01:33 Hospitalization ordered by Bhavik Danielson for Inpatient Admission. Preliminary diagnosis are Ascites, Anemia, unspecified, Unspecified cirrhosis of liver - hepatitis c, Edema, unspecified. - Bed requested for Telemetry/MedSurg (Inpatient). - Status is Inpatient Admission. jd3 - Condition is Fair. - Problem is new. - Symptoms have improved. UTI on Admission? No Signatures: Dispatcher [employer] EDBreezy Heath MD MD cha Garcia, Cindy RN Joshua Cook RN RN jMounika Lazar RN RN tl3 Jose Armando Saez RN RN mg2 Corrections: (The following items were deleted from the chart) 01:33 01:33 Hospitalization Ordered by Bhavik Danielson MD for Inpatient Admission. Preliminary yamini diagnosis is Ascites; Anemia, unspecified; Unspecified cirrhosis of liver - hepatitis c. Bed requested for Telemetry/MedSurg (Inpatient). Status is Inpatient Admission. Condition is Fair. Problem is new. Symptoms have improved. UTI on Admission? No. yamini 02:16 01:33 03/16/2018 01:33 Hospitalization Ordered by Bhavik Danielson MD for Inpatient cg Admission. Preliminary diagnosis is Ascites; Anemia, unspecified; Unspecified cirrhosis of liver - hepatitis c; Edema, unspecified. Bed requested for Telemetry/MedSurg (Inpatient). Status is Inpatient Admission. Condition is Fair. Problem is new. Symptoms have improved. UTI on Admission? No. yamini 02:42 02:16 03/16/2018 01:33 Hospitalization Ordered by Bhavik Danielson MD for Inpatient jd3 Admission. Preliminary diagnosis is Ascites; Anemia, unspecified; Unspecified cirrhosis of liver - hepatitis c; Edema, unspecified. Bed requested for Telemetry/MedSurg (Inpatient). Status is Inpatient Admission. Condition is Fair. Problem is new. Symptoms have improved. UTI on Admission? No. cg
--- NOTE | 2018-03-16 01:33 | ER ---
Nurse's Notes [facility] Name: Mumtaz Mace Age: 57 yrs Sex: Male : 1960 Arrival Date: 03/15/2018 Time: 23:12 Bed 18 Private MD: Diagnosis: Ascites;Anemia, unspecified;Unspecified cirrhosis of liver-hepatitis c;Edema, unspecified Presentation: 03/15 23:24 Presenting complaint: Patient states: pt states that he has had fluid building up n him tl3 for the week or so, can't put on his shoes abdomen swollen, feels like it is hard to breathe when lying down. Transition of care: patient was not received from another setting of care. Onset of symptoms was March 2018. Risk Assessment: Do you want to hurt yourself or someone else? Patient reports no desire to harm self or others. Initial Sepsis Screen: Does the patient meet any 2 criteria? No. Patient's initial sepsis screen is negative. Does the patient have a suspected source of infection? No. Patient's initial sepsis screen is negative. Care prior to arrival: None. 23:24 Method Of Arrival: Ambulatory tl3 23:24 Acuity: BUD 3 tl3 Triage Assessment: 23:27 General: Appears uncomfortable, well developed, well nourished, Behavior is calm, tl3 cooperative, appropriate for age. Pain: Complains of pain in genitals, groin and chest Pain currently is 9 out of 10 on a pain scale. Historical: - Allergies: 23:27 PENICILLINS; tl3 - Home Meds: 23:27 Spironolacton-Hydrochlorothiaz Oral [Active]; Propranolol Oral [Active]; pantoprazole tl3 40 mg oral TbEC 1 tab once daily [Active]; - PMHx: 23:27 Hepatitis; tl3 - PSHx: 23:27 Left ankle surgery; tl3 - Immunization history:: Adult Immunizations up to date. - Social history:: Smoking status: Patient/guardian denies using tobacco, but has a distant history of tobacco abuse. - Ebola Screening: : No symptoms or risks identified at this time. - Family history:: not pertinent. Screenin/16 00:19 Abuse screen: Denies threats or abuse. Denies injuries from another. Nutritional mg2 screening: No deficits noted. Tuberculosis screening: No symptoms or risk factors identified. Fall Risk IV access (20 points). Ambulatory Aid- Crutches/Cane/Walker (15 pts). Gait- Normal/Bed Rest/Wheelchair (0 pts). Assessment: 00:17 General: Appears in no apparent distress. comfortable, Behavior is calm, cooperative. mg2 Pain: Denies pain. Neuro: Level of Consciousness is awake, alert, obeys commands, Oriented to person, place, time, situation. Cardiovascular: Capillary refill < 3 seconds Patient's skin is warm and dry. Rhythm is sinus rhythm. Respiratory: Reports shortness of breath on exertion Airway is patent Respiratory effort is even, unlabored, Respiratory pattern is regular, symmetrical. GI: No signs and/or symptoms were reported involving the gastrointestinal system. GI: Abdomen is round distended, noted to have ascites. : No signs and/or symptoms were reported regarding the genitourinary system. EENT: No signs and/or symptoms were reported regarding the EENT system. Derm: Skin is intact, is healthy with good turgor, Skin is pink, warm \T\ dry. normal. Derm: Skin is pale. Musculoskeletal: No signs and/or symptoms reported regarding the musculoskeletal system. 02:07 Reassessment: Patient appears in no apparent distress at this time. Patient and/or mg2 family updated on plan of care and expected duration. Pain level reassessed. Patient is alert, oriented x 3, equal unlabored respirations, skin warm/dry/pink. patient informed about the need for hospitalization, patient agreed. Vital Signs: 03/15 23:27 BP 168 / 64; Pulse 67; Resp 20; Temp 98.1; Pulse Ox 100% ; Weight 77.11 kg; Height 5 tl3 ft. (152.40 cm); 03/16 00:30 BP 169 / 69; Pulse 72; Resp 20; Pulse Ox 100% on R/A; Pain 0/10; mg2 02:23 BP 156 / 68; Pulse 71; Resp 19; Temp 98; Pulse Ox 100% on R/A; Pain 3/10; mg2 03/15 23:27 Body Mass Index 33.20 (77.11 kg, 152.40 cm) tl3 ED Course: 03/15 23:12 Patient arrived in ED. al2 23:26 Triage completed. tl3 23:27 Arm band placed on right wrist. tl3 23:51 Breezy Tomlin MD is Attending Physician. yamini 03/16 00:17 Jose Armando Saez, RN is Primary Nurse. mg2 00:19 Patient has correct armband on for positive identification. Pulse ox on. NIBP on. mg2 00:19 No provider procedures requiring assistance completed. Inserted saline lock: 20 gauge mg2 in right forearm, using aseptic technique. Blood collected. 01:31 Bhavik Danileson MD is Hospitalizing Provider. yamini 02:31 Patient admitted, IV remains in place. mg2 Administered Medications: 00:30 Drug: ProTONIX 40 mg Route: IVP; Site: right forearm; mg2 02:26 Follow up: Response: No adverse reaction mg2 02:05 Drug: Lactulose 30 grams Volume: 45 ml; Route: PO; mg2 02:18 Follow up: Response: No adverse reaction mg2 02:06 Drug: Lasix 40 mg Route: IVP; Site: right forearm; mg2 02:18 Follow up: Response: No adverse reaction mg2 02:18 Drug: Spironolactone 50 mg Route: PO; mg2 02:19 Follow up: Response: No adverse reaction mg2 Outcome: 01:33 Decision to Hospitalize by Provider. yamini 02:31 Admitted to Med/surg accompanied by nurse, via wheelchair, room 210, with chart, Report mg2 called to ADAM Peres 02:31 Condition: stable 02:31 Instructed on the need for admit, Demonstrated understanding of instructions. 02:42 Patient left the ED. jd3 Signatures: Breezy Tomlin MD MD cha Davies, Jonathon, RN RN jd3 Nae Tong Tammy, RN RN tl3 Jose Armando Saez, ADAM RN mg2 Corrections: (The following items were deleted from the chart) 03/15 23:31 23:27 BP 168 / 64; Pulse 67bpm; Resp 20bpm; Pulse Ox 100%; 77.11 kg; Height 5 ft.; BMI: tl3 33.2; tl3 03/16 01:32 00:30 BP 169 / 69; Pulse 72bpm; Resp 70bpm; Pulse Ox 100% RA; Pain 0/10; mg2 mg2
[2018-03-16] MEDS ORDERED: LACTULOSE 20 GM/30 ML UCUP ONE (01:50)
[2018-03-16] MEDS ORDERED: ONDANSETRON 4 MG/2 ML VIAL IV PRN (01:55)
[2018-03-16] MEDS ORDERED: ALPRAZOLAM 0.25 MG TABLET PO PRN (01:55)
[2018-03-16] MEDS ORDERED: FUROSEMIDE 40 MG/4 ML VIAL ONE (02:04)
[2018-03-16 05:34] LABS: Urine Blood 2+ (NEG); Urine Glucose NEGATIVE (NEG); Urine Protein 3+ (NEG); Urine pH 5.5 (5.0-7.0)
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
[2018-03-16] MEDS: HYDROMORPHONE HCL 1 MG/ML INJ IV PRN ×3 (06:16→20:35)
[2018-03-16] MEDS: PANTOPRAZOLE 40MG TABLET PO SCH ×2 (06:16→17:13)
--- NOTE | 2018-03-16 08:25 | RAD REPORT ---
EXAM DESCRIPTION: Merry Single View03/16/2018 12:14 am CLINICAL HISTORY: Cough COMPARISON: January 2018 FINDINGS: A few areas of subsegmental atelectasis are present within the lung bases. Remainder the lungs are clear of acute infiltrate. The heart is normal size
[2018-03-16] MEDS: ALBUMIN HUMAN 25% 12.5 GM, FUROSEMIDE 100 MG in NA CHLORIDE 0.9% 40 ML IV SCH ×4 (08:57→22:51)
[2018-03-16] MEDS: PROPRANOLOL HCL 80 MG SA CAP PO SCH (09:00)
[2018-03-16] MEDS: SPIRONOLACTONE 25 MG TABLET PO SCH ×2 (09:00→20:34)
--- NOTE | 2018-03-16 10:22 | EKG ---
Test Date: 2018-03-16 Test Time: 00:12:43 District Engineer: MEASUREMENT RESULTS: Intervals: Rate: 72 WY: 148 QRSD: 76 QT: 390 QTc: 427 [place]: P: 43 WY: 148 QRS: 43 T: 50 INTERPRETIVE STATEMENTS: Normal sinus rhythm Normal ECG Compared to ECG 02/14/2018 22:51:59 T-wave abnormality no longer present Prolonged QT interval no longer present Electronically Signed On 03-16-18 10:21:37 CARGO TRIMMER by Yony Henning
--- NOTE | 2018-03-16 13:03 | RAD REPORT ---
EXAM DESCRIPTION: US - Paracentesis Proc Guidance - 03/16/2018 12:06 pm CLINICAL HISTORY: Liver disease with ascites FINDINGS: The risks, benefits and alternatives to the procedure were explained to the patient and in formed consent obtained. The skin and subcutaneous tissues were anesthetized with Lidocaine. Under sonographic guidance an 8 F rench catheter was placed into the right lower quadrant. 9.5 liters of fluid was removed The patient experienced no immediate complication. IMPRESSION: Paracentesis
[2018-03-16] MEDS: ALBUMIN HUMAN 25% 200 ML IV SCH ×2 (14:03→15:42)
[2018-03-16 16:18] LABS: Urine Appearance CLEAR; Urine Bilirubin NEGATIVE (NEG); Urine Blood TRACE (NEG); Urine Color YELLOW; Urine Glucose NEGATIVE (NEG); Urine Protein NEGATIVE (NEG)
[2018-03-16 16:24] LABS: Urine Microscopic Reflex ORDER UMIC
[2018-03-16 16:29] LABS: Urine Bacteria NONE SEEN /HPF (NONE SEEN); Urine RBC <5 /HPF (NONE SEEN)
[2018-03-16 16:30] LABS: Urine Culture Reflex Order NOT NEEDED
[2018-03-17] MEDS: ALBUMIN HUMAN 25% 12.5 GM, FUROSEMIDE 100 MG in NA CHLORIDE 0.9% 40 ML IV SCH ×5 (04:28→23:53)
[2018-03-17] MEDS: HYDROMORPHONE HCL 1 MG/ML INJ IV PRN ×5 (04:29→23:43)
[2018-03-17 04:31] LABS: Absolute Lymphocytes (CBC) 0.9 K/uL (0.7-4.9); Absolute Monocytes 0.7 K/uL (0.1-1.3); Absolute Neutrophil 4.9 K/uL (1.8-8.0); Basophils % 1.3 % (0-1.3); Eosinophils % 3.1 % (0-4.4); Hematocrit 29.7 % (39.6-49.0); Lymphocytes % 12.9 % (15.3-44.8); MPV 8.4 fL (7.6-11.3); Monocytes % 10.4 % (3.3-12.3); RBC Red Blood Cell Count 3.22 M/uL (4.33-5.43)
[2018-03-17 04:35] LABS: Protime INR 1.36
[2018-03-17 04:46] LABS: Albumin 2.9 g/dL (3.4-5.0); Bilirubin Total 1.8 mg/dL (0.2-1.0); Phosphorus 4.4 mg/dL (2.5-4.9); Potassium 4.1 mmol/L (3.5-5.1); Protein, Total 5.7 g/dL (6.4-8.2)
[2018-03-17] MEDS: PANTOPRAZOLE 40MG TABLET PO SCH ×2 (05:13→16:41)
[2018-03-17] MEDS: PROPRANOLOL HCL 80 MG SA CAP PO SCH (08:53)
[2018-03-17] MEDS: SPIRONOLACTONE 25 MG TABLET PO SCH ×2 (08:53→20:29)
--- NOTE | 2018-03-17 11:20 | P.PN ---
Subjective Date of Service: 03/17/18 Chief Complaint: GENERALIZED EDEMA/ANASARCA/HEPATITIS-C CIRRHOSIS Subjective: Improving Patient seen and examined at bedside. No family at bedside. Chart reviewed and case discussed with nursing staff. Reports improved pain and swelling in the abdomen. Continues to have 1 to 2+ bilateral pitting edema of the lower extremities Review of Systems 10-point ROS is otherwise unremarkable Physical Examination - Vital Signs Temperature: 98.1 F Blood Pressure: 135/61 Pulse: 74 Respirations: 18 Pulse Ox (%): 96 - Physical Exam General: Alert, In no apparent distress, Oriented x3 HEENT: Atraumatic, PERRLA, EOMI Neck: Supple, JVD not distended Respiratory: Clear to auscultation bilaterally, Normal air movement Cardiovascular: Regular rate/rhythm, Normal S1 S2 Gastrointestinal: Normal bowel sounds, Tenderness (Mild; umbilical hernia noted without strangulation) Musculoskeletal: Swelling (Bilateral lower extremity) Integumentary: No rashes Neurological: Normal speech, Normal tone, Normal affect - Studies Medications List Reviewed: Yes Assessment And Plan - Plan This is a 57-year-old male with: Abdominal distention Anasarca Ascites Cirrhosis of the liver History of hepatitis-C Status post ultrasound-guided paracentesis, 9.5 L removed Continue albumin with Lasix. Remains hemodynamically stable, electrolytes also stable. Patient will need outpatient referral for postmaster. Per patient, he is a resources and therefore cannot afford a lot of the specialist/treatments. Patient states that he we is going to have a family meeting, his family is going to help of this time. He does have a potential liver specialist in [place] that he may be seeing after discharge from here. Continue home medications as tolerated DVT prophylaxis: Lovenox GI prophylaxis: Protonix Diet: Renal Disposition: Pending symptomatic improvement. Likely discharge in the next 24- 48 hr. Time Spent Managing PTS Care (In Minutes): 35
[2018-03-17] MEDS: ENOXAPARIN 40 MG/0.4 ML SQ SCH (16:41)
[2018-03-18] MEDS: HYDROMORPHONE HCL 1 MG/ML INJ IV PRN ×4 (06:42→20:43)
[2018-03-18] MEDS: ALBUMIN HUMAN 25% 12.5 GM, FUROSEMIDE 100 MG in NA CHLORIDE 0.9% 40 ML IV SCH ×4 (06:45→20:00)
[2018-03-18 08:09] LABS: Urine Total Volume 24 Hours 3300 ml
[2018-03-18 08:17] LABS: UR PROTEIN 6 mg/dL (<11.9)
[2018-03-18] MEDS: PROPRANOLOL HCL 80 MG SA CAP PO SCH (08:50)
[2018-03-18] MEDS: PANTOPRAZOLE 40MG TABLET PO SCH ×2 (08:50→16:08)
[2018-03-18] MEDS: SPIRONOLACTONE 25 MG TABLET PO SCH ×2 (08:50→20:37)
[2018-03-18] MEDS: ENOXAPARIN 40 MG/0.4 ML SQ SCH (16:08)
--- NOTE | 2018-03-18 17:18 | P.PN ---
Subjective Date of Service: 03/18/18 Chief Complaint: GENERALIZED EDEMA/ANASARCA/HEPATITIS-C CIRRHOSIS Subjective: No new changes Patient seen and examined at bedside. No family at bedside. Chart reviewed and case discussed with nursing staff. Reports improved pain and swelling in the abdomen. Lower extremity edema also improved Review of Systems 10-point ROS is otherwise unremarkable Physical Examination - Vital Signs Temperature: 97.5 F Blood Pressure: 130/57 Pulse: 68 Respirations: 16 Pulse Ox (%): 98 - Physical Exam General: Alert, In no apparent distress, Oriented x3 HEENT: Atraumatic, PERRLA, EOMI Neck: Supple, JVD not distended Respiratory: Clear to auscultation bilaterally, Normal air movement Cardiovascular: Regular rate/rhythm, Normal S1 S2 Gastrointestinal: Normal bowel sounds, Ascites, Tenderness Musculoskeletal: No tenderness Integumentary: No rashes Neurological: Normal speech, Normal tone, Normal affect - Studies Medications List Reviewed: Yes Assessment And Plan - Plan This is a 57-year-old male with: Abdominal distention Anasarca Ascites Cirrhosis of the liver History of hepatitis-C Status post ultrasound-guided paracentesis, 9.5 L removed Continue albumin with Lasix. Remains hemodynamically stable, electrolytes also stable. Patient will need outpatient referral for reinforcement maker. Per patient, he is a resources and therefore cannot afford a lot of the specialist/treatments. Patient states that he we is going to have a family meeting, his family is going to help of this time. He does have a potential liver specialist in [place] that he may be seeing after discharge from here. Continue home medications as tolerated DVT prophylaxis: Lovenox GI prophylaxis: Protonix Diet: Renal Disposition: Pending symptomatic improvement. Likely discharge in the next 24- 48 hr.
[2018-03-19] MEDS: ALBUMIN HUMAN 25% 12.5 GM, FUROSEMIDE 100 MG in NA CHLORIDE 0.9% 40 ML IV SCH ×3 (00:53→11:00)
[2018-03-19] MEDS: HYDROMORPHONE HCL 1 MG/ML INJ IV PRN ×2 (03:11→09:21)
[2018-03-19 05:38] VITALS: BMI 25.5
[2018-03-19 06:02] LABS: Absolute Lymphocytes (CBC) 0.7 K/uL (0.7-4.9); Absolute Monocytes 0.5 K/uL (0.1-1.3); Absolute Neutrophil 2.6 K/uL (1.8-8.0); Basophils % 0.8 % (0-1.3); Eosinophils % 4.1 % (0-4.4); Hematocrit 25.4 % (39.6-49.0); MPV 9.1 fL (7.6-11.3); RBC Red Blood Cell Count 2.78 M/uL (4.33-5.43)
[2018-03-19 06:17] LABS: Albumin 3.5 g/dL (3.4-5.0); Bilirubin Total 1.4 mg/dL (0.2-1.0); Potassium 3.4 mmol/L (3.5-5.1); Protein, Total 5.9 g/dL (6.4-8.2)
[2018-03-19] MEDS ORDERED: POTASSIUM CL SA 10 MEQ TAB PO ONE (08:00)
[2018-03-19] MEDS: SPIRONOLACTONE 25 MG TABLET PO SCH (09:20)
[2018-03-19] MEDS: PROPRANOLOL HCL 80 MG SA CAP PO SCH (09:20)
[2018-03-19] MEDS: PANTOPRAZOLE 40MG TABLET PO SCH (09:21)
[2018-03-19 15:50] VITALS: BP 140/68; TEMP 98.7
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
[2018-03-19 16:33] VITALS: O2SAT 98
--- NOTE | 2018-03-21 07:56 | ECHO ---
HEIGHT: 5 ft 0 in WEIGHT: 130 lb 14.4 oz DATE OF STUDY: 03/18/[address]: Jacqui Jin MD 2-DIMENSIONAL: YES M.MODE: YES DOPPLER: YES COLOR FLOW: YES TDS: NO PORTABLE: NO DEFINITY: NO BUBBLE STUDY: NO DIAGNOSIS: LOWER EXTREMITY SWELLING CARDIAC HISTORY: CATHERIZATION: NO SURGERY: NO PROSTHETIC VALVE: NO PACEMAKER: NO MEASUREMENTS (cm) DIASTOLIC (NORMALS) SYSTOLIC (NORMALS) IVSd 1.2 (0.6-1.2) LA Diam 3.0 (1.9-4.0) LVEF 86% LVIDd 3.6 (3.5-5.7) LVIDs 1.6 (2.0-3.5) %FS 54% LVPWd 1.2 (0.6-1.2) Ao Diam 2.9 (2.0-3.7) 2 DIMENSIONAL ASSESSMENT: RIGHT ATRIUM: NORMAL LEFT ATRIUM: NORMAL RIGHT VENTRICLE: NORMAL LEFT VENTRICLE: NORMAL TRICUSPID VALVE: NORMAL MITRAL VALVE: NORMAL PULMONIC VALVE: NORMAL AORTIC VALVE: NORMAL PERICARDIAL EFFUSION: NONE AORTIC ROOT: NORMAL LEFT VENTRICULAR WALL MOTION: HYPERDYNAMIC. DOPPLER/COLOR FLOW: MILD AORTIC AND TRICUSPID REGURGITATION. COMMENTS: MILD AORTIC AND TRICUSPID REGURGITATION. HYPERDYNAMIC LEFT VENTRICULAR WALL MOTION. LEFT VENTRICULAR EJECTION FRACTION >80%. DECREASED LEFT VENTRICULAR COMPLIANCE. TECHNOLOGIST: Pedro HANNAH
== END 2018-03-19 16:22 | disposition home or self-care (01) | DRG 433 ==
LOC: ER 23:10 → ERHOLD 03-16 01:55 → 2ND 03-16 02:31
PROVIDERS: ADMIT Hospitalist; ATTEND Family Medicine
PROC: 0W9G3ZZ Drainage of Peritoneal Cavity, Percutaneous Approach (ICD-10-PCS; principal; 2018-03-16)
DX: K74.60 Unspecified cirrhosis of liver (principal); R18.8 Other ascites; B18.2 Chronic viral hepatitis C; R60.1 Generalized edema; E88.09 Other disorders of plasma-protein metabolism, not elsewhere classified; Z88.0 Allergy status to penicillin
CPT/HCPCS: 36415; 49083; 71045; 80048; 80053; 80076; 81003; 81015; 82140; 83690; 83735; 83880; 84100; 84132; 84156; 84484; 85025; 85610; 85730; 87086; 87088; 93005; 93306; 96374; 96375; 97163; 99285; C9113; J1170; J1650; J1940; P9047